=== PATIENT | female | born 1980 | race Caucasian/White ===

== ENCOUNTER 2021-09-03 15:14 | Emergency (ER) | payer OTHER, SELFPAY ==
[2021-09-03 15:25] VITALS: BP 148/64; PULSE 102; RESP 18; TEMP 36.4; O2SAT 98
[2021-09-03 15:36] VITALS: BP 148/64; PULSE 102; RESP 18; TEMP 36.4; O2SAT 98
--- NOTE | 2021-09-03 16:01 | ED.FEMALEGU ---
HPI - Female Genitourinary General Chief complaint: Urogenital-Female Stated complaint: uti symptoms Time Seen by Provider: 09/03/21 15:55 Source: patient, RN notes reviewed and old records reviewed Mode of arrival: ambulatory History of Present Illness HPI Narrative: 40 year [facility] of burning with urination, frequency and urgency with urination since Friday. Patient reports that she has been taking Cranberry pills for her symptoms , denies any use of AZO. Patient states that she has had no fevers, chills or sweats, mild suprapubic abdominal pain denies any back pain. Patient denies any vaginal discharge or itching or any concern for possible STD exposure. Patient reports that at the end of urine stream is very painful. MD elicited complaint: dysuria and UTI Related Data Home Medications Medication Instructions Recorded Confirmed diclofenac sodium 75 mg PO DAILY 09/03/21 09/03/21 Allergies Allergy/AdvReac Type Severity Reaction Status Date / Time No Known Allergies Allergy Unverified 09/03/21 15:36 Review of Systems Review of Systems: CONSTITUTIONAL: Denies fever, chills, or sweats. EYES: Denies visual changes, redness, or discharge. ENT: Denies rhinorrhea, congestion, sore throat, or otalgia. CARDIOVASCULAR: Denies chest pain, palpitations, or edema. RESPIRATORY: Denies cough or dyspnea. GASTROINTESTINAL: mild suprapubic abdominal pain, no nausea, vomiting, or diarrhea. GENITOURINARY: Positive for dysuria or hematuria. SKIN: Denies rash or itching. MUSCULOSKELETAL: Denies back pain, joint pain, or myalgia. NEUROLOGIC: Denies headache, numbness, or weakness. PSYCHIATRIC: Denies anxiety or depression. All systems reviewed & are unremarkable except as noted in HPI and below PMFSH Past Medical History Medical History (Updated 09/03/21 @ 16:07 by Diana Conner NP) UTI (urinary tract infection) Family History Family History Grandparent Family history of malignant neoplasm of breast Family history of colonic diverticulitis Family history of heart disease in male family member before age 55 Diabetes mellitus Social History Social History Smoking status: Never smoker Second hand tobacco smoke exposure: No Alcohol intake: current Comments At time of signature, agree with nursing past medical, surgical, social and family history. There is no relevant family history pertinent to the presenting complaint Exam Narrative: GENERAL: Well-appearing, well-nourished, and in no acute distress. HEAD: Normocephalic, atraumatic. EYES: PERRLA and EOMI. ENT: Nares clear, no rhinorrhea or epistaxis. Mucous membranes moist. NECK: Supple.no lymphadenopathy CHEST: Clear to auscultation. No respiratory distress. SAO2 98% on room air HEART: Regular rate and rhythm. No murmur heard. Normal peripheral pulses. ABDOMEN: Soft, minimal tenderness at lower mid abdomen, nondistended, normal active bowel sounds. EXTREMITIES: Normal range of motion. No edema. SKIN: Warm, dry, no rash. NEURO: No focal deficits. Alert and oriented x3. Course Course Level of Care: Express Care Visit Vital Signs Vital signs: Vital Signs Temperature 36.4 C 09/03/21 15:25 Pulse Rate 102 H 09/03/21 15:25 Respiratory Rate 18 09/03/21 15:25 Blood Pressure 148/64 H 09/03/21 15:25 Pulse Oximetry 98 09/03/21 15:25 Temperature 36.4 C 09/03/21 15:36 Pulse Rate 102 H 09/03/21 15:36 Respiratory Rate 18 09/03/21 15:36 Blood Pressure 148/64 H 09/03/21 15:36 Pulse Oximetry 98 09/03/21 15:36 MDM - Female Genitourinary Differential Diagnosis Differential diagnosis: Likely urinary tract infection, vaginitis, cystitis and other Medical Records Attestation: I reviewed the patient's medical records. Lab Data Attestation: I reviewed the patient's lab results. Lab re
== END 2021-09-03 16:10 | disposition home or self-care (01) ==
PROVIDERS: Emergency Provider Registered Nurse
DX: N39.0 Urinary tract infection, site not specified (principal)
CPT/HCPCS: 81003; 87077; 87086; 87088; 87186; 99213; G0463

== ENCOUNTER 2022-02-12 12:05 | Emergency (ER) | payer OTHER, SELFPAY ==
--- NOTE | 2022-02-12 12:06 | ED.WOUNDLAC ---
HPI - Wound/Laceration General Chief Complaint: Wound/Laceration Stated Complaint: Laceration to Finger Time Seen by Provider: 02/12/22 12:06 Source: patient Mode of arrival: ambulatory Limitations: no limitations History of Present Illness HPI narrative: Ms. Oconnell is a 41-year-old female patient presenting to the clinic today with complaints of a laceration to the right index finger. Patient reports that she was using a mandolin and cut her finger today around 11:00 this morning. She reports that it has been bleeding over the last hour and she is having difficulty getting the bleeding to stop. Tetanus status unk. Related Data Home Medications Medication Instructions Recorded Confirmed No Home Medications 02/12/22 02/12/22 Allergies Allergy/AdvReac Type Severity Reaction Status Date / Time No Known Allergies Allergy Verified 02/12/22 12:16 Review of Systems Review of Systems: Pertinent positives per HPI. Patient denies any fever, chills, rash, headache, visual changes, dizziness, cough, runny nose, sore throat, shortness of breath, chest pain, palpitations, nausea, vomiting, diarrhea, constipation, abdominal pain, or any urinary issues. PMFSH Past Medical History Medical History UTI (urinary tract infection) Family History Family History Grandparent Family history of malignant neoplasm of breast Family history of colonic diverticulitis Family history of heart disease in male family member before age 55 Diabetes mellitus Social History Social History Smoking status: Never smoker Second hand tobacco smoke exposure: No Alcohol intake: current Comments At the time of my signature, I reviewed and agree with the nursing past medical, surgical, social, and family history. There is no relevant family history pertinent to the patient complaint. Exam Narrative: General: Well-developed, well nourished, in no apparent distress Head: Normocephalic, atraumatic. Cardio: Regular rate and rhythm, s1 and s2 normal, no murmur appreciated. Resp: Clear to auscultation bilaterally, no rhonchi, rales, wheezing or rubs. Integumentary: Percy, warm, and dry, skin avulsion to the distal right index finger with bleeding. Skin flap totally removed Course Course Emergency Course: Portions of this record may have been created with voice recognition software. Level of Care: Express Care Visit Vital Signs Vital signs: Vital signs reviewed Procedures Laceration Laceration 1: Date: 02/12/22 Site: hand (Right index finger) Side (If applicable): right Description: clean and other (Skin avulsion the size of a pencil eraser to the distal right index finger) Depth: simple, single layer Local Anesthetic: lidocaine 1% Amount of anesthesia used (mL): 0.5 Pre-repair: wound explored and irrigated ====== Skin Level ====== ====== Subcutaneous Layer ====== ====== Muscle Layer ====== ====== Tendon Layer ====== Dressing: Skin avulsion cleansed with technic care and normal saline. 0.5 mL of lidocaine without epi instilled into wound edges. Bleeding controlled using Surgicel and 2 x 2 and 4 x 4 applied over the wound and secured with tube gauze. Patient tolerated procedure well MDM - Wound/Laceration MDM Narrative Medical decision making narrative: At the time of visit patient is resting comfortably on the exam table. Wound was cleansed using technic care and normal saline. 0.5 mL of lidocaine without epi was injected into the site and Surgicel was applied to the wound to promote clotting. Dressing was applied to the affected area and tetanus shot was given. Supportive measures were discussed with the patient she voiced understanding of discharge instructions an
[2022-02-12 12:08] VITALS: BP 156/65; PULSE 80; RESP 14; TEMP 37.1; O2SAT 100
[2022-02-12] MEDS: TETANUS,DIPHTHERIA,AC PERTUSSIS ADULT (0.5 ML) BOOSTRIX IM (12:23)
== END 2022-02-12 12:40 | disposition home or self-care (01) ==
PROVIDERS: Emergency Provider Nurse Practitioner Family
DX: S61.200A Unspecified open wound of right index finger without damage to nail, initial encounter (principal); W27.4XXA Contact with kitchen utensil, initial encounter; Z23 Encounter for immunization
CPT/HCPCS: 90471; 90715; 99212; G0463

== ENCOUNTER 2023-04-16 14:07 | Outpatient (CLI) | payer OTHER, SELFPAY ==
--- NOTE | ~2023-04-16 | MM_ITS ---
EXAMINATION: MM screening kiana BI w dorie HISTORY: Screening mammogram TECHNIQUE: Craniocaudal and mediolateral oblique 3-D tomosynthesis images were obtained and synthetic 2-D images were generated. CAD analysis was submitted and interpreted. COMPARISON: No prior mammogram is available for comparison at this institution. BREAST PARENCHYMAL COMPOSITION: There are scattered areas of fibroglandular density. FINDINGS: There is no evidence of suspicious mass, calcification, or architectural distortion to sugg est malignancy in either breast. There has been no suspicious interval change. IMPRESSION: 1. No mammographic evidence of malignancy. 2. Recommend routine screening mammography in one year. BI-RADS Category 1: Negative Reviewed, dictated and finalized at location A.
== END 2023-04-16 14:08 | disposition home or self-care (01) ==
LOC: ANHIMG 14:11
DX: Z12.31 Encounter for screening mammogram for malignant neoplasm of breast (principal)
CPT/HCPCS: 77063; 77067

== ENCOUNTER 2023-12-31 14:33 | Emergency (ER) | payer OTHER, SELFPAY ==
[2023-12-31 14:40] VITALS: BP 150/70; PULSE 97; RESP 16; TEMP 36.8; O2SAT 98
--- NOTE | 2023-12-31 14:45 | ED.GENADULT ---
HPI - General Adult General Chief complaint: Urogenital-Female Stated complaint: Urinary Problelm Time Seen by Provider: 12/31/23 14:45 Source: patient, RN notes reviewed and old records reviewed Mode of arrival: ambulatory Limitations: no limitations History of Present Illness HPI narrative: 43-year-old female to Express Care for complaint of urinary frequency, retention, urgency and dysuria that started this morning. Patient endorses history of UTIs. Patient reports using a menstrual cup during her cycle and is noticing some correlation between her cycles and urinary tract infections. Patient states that when she properly sterilize is her menstrual cup in between her cycles that she does not urinary tract infections. Patient reports not sterilizing menstrual cup after cycle last month and states that she is currently at the end her current cycle. patient denies fever, nausea, vomiting, back pain, allergies. patient able to tolerate fluids by mouth. Patient in no acute distress. Related Data Home Medications Medication Instructions Recorded Confirmed fluoxetine 10 mg capsule 10 mg PO DAILY 12/31/23 12/31/23 Allergies Allergy/AdvReac Type Severity Reaction Status Date / Time No Known Allergies Allergy Verified 02/12/22 12:16 Review of Systems Review of Systems: All systems reviewed & are unremarkable except as noted in HPI and below Constitutional: Constitutional: Reports no additional constitutional complaints Eyes: Eyes: Reports no additional eye complaints ENT: Reports system reviewed and no additional complaints, except as documented Cardiovascular: Cardiovascular: Reports no additional cardiovascular complaints, Denies chest pain and Denies dyspnea Respiratory: Respiratory: Reports no additional respiratory complaints, Denies cough and Denies dyspnea Genitourinary: Genitourinary: Reports as per HPI, Reports nocturia, Reports dysuria, Denies flank pain, Reports urinary hesitancy and Reports urinary urgency Musculoskeletal: Musculoskeletal: Reports no additional musculoskeletal complaints Neurologic: Reports system reviewed and no additional complaints, except as documented Psychiatric: Psychiatric: Reports no additional psychiatric complaints PMFSH Past Medical History Medical History UTI (urinary tract infection) Family History Family History Grandparent Family history of malignant neoplasm of breast Family history of colonic diverticulitis Family history of heart disease in male family member before age 55 Diabetes mellitus Social History Social History Smoking status: Never smoker Second hand tobacco smoke exposure: No Alcohol intake: current Comments At the time of my signature, I reviewed and agree with the nursing past medical, surgical, social, and family history. There is no relevant family history pertinent to the patient complaint. Exam Const: General: cooperative, healthy appearing, comfortable, no acute distress, alert and well nourished Nutritional Appearance: well nourished Orientation/consciousness: patient oriented x3 Limitations: no limitations HENMT: Head: normal to inspection Ears: external ears normal Face/Nose/Sinus: Normal external nose present, Normal nares present, normal facial exam, No erythema and No edema Face and sinus: normal facial exam, no erythema and no edema Mouth: Yes Normal oral and palatal mucosa present Eyes: General: appearance normal, both eyes and all related structures Neck: Neck: normal visual inspection, full ROM and no meningeal signs Chest: Chest palpation & inspection: normal inspection of the chest Resp: Effort & Inspection: normal respiratory effort and able to speak in complete sentences Cardio: Jugular venous distension: no JVD Rate: regular
== END 2023-12-31 15:05 | disposition home or self-care (01) ==
PROVIDERS: Emergency Provider Nurse Practitioner Family
DX: N39.0 Urinary tract infection, site not specified (principal)
CPT/HCPCS: 81003; 87086; 87088; 99213; G0463

== ENCOUNTER 2024-03-13 11:02 | Emergency (ER) | payer OTHER, SELFPAY ==
[2024-03-13 11:10] VITALS: BP 135/72; PULSE 69; RESP 20; TEMP 36.8; O2SAT 98
[2024-03-13 11:37] LABS: EDUAAPPEAR Cloudy; EDUABILI Negative (Negative); EDUABLOOD 2+ (Negative); EDUACOLOR1 Yellow; EDUAGLUCOSE Negative (Negative); EDUAKETONE Negative (Negative); EDUALEUKO 1+ (Negative); EDUANITRATE Negative (Negative); EDUAPH 6.5; EDUAPROTEIN 2+ (Negative); EDUAUROBILI 0.2
--- NOTE | 2024-03-13 20:36 | ED.GENADULT ---
HPI - General Adult General Chief complaint: Urogenital-Female Stated complaint: Poss UTI Time Seen by Provider: 03/13/24 11:21 Source: patient, RN notes reviewed and old records reviewed Mode of arrival: ambulatory Limitations: no limitations History of Present Illness HPI narrative: 43-year-old female to Express Care complaint of painful urination, burning with urination, urinary frequency for 3 days. Patient denies fever, abdominal pain. Patient has attempted to treat at home with [id number] medications with intermittent relief. Patient denies abdominal pain, back pain, flank pain, nausea, vomiting, bowel changes, allergies, pertinent medical history. Patient able to tolerate fluids by mouth. Patient resting comfortably in exam room in no acute distress. Related Data Home Medications Medication Instructions Recorded Confirmed fluoxetine 10 mg capsule 10 mg PO DAILY 12/31/23 12/31/23 Allergies Allergy/AdvReac Type Severity Reaction Status Date / Time No Known Allergies Allergy Verified 02/12/22 12:16 Review of Systems Review of Systems: All systems reviewed & are unremarkable except as noted in HPI and below Constitutional: Constitutional: Reports no additional constitutional complaints Eyes: Eyes: Reports no additional eye complaints ENT: Reports system reviewed and no additional complaints, except as documented Cardiovascular: Cardiovascular: Reports no additional cardiovascular complaints, Denies chest pain and Denies dyspnea Respiratory: Respiratory: Reports no additional respiratory complaints, Denies cough and Denies dyspnea Genitourinary: Genitourinary: Reports nocturia and Reports dysuria Musculoskeletal: Musculoskeletal: Reports no additional musculoskeletal complaints Neurologic: Reports system reviewed and no additional complaints, except as documented Psychiatric: Psychiatric: Reports no additional psychiatric complaints [facility] Past Medical History Medical History UTI (urinary tract infection) Family History Family History Grandparent Family history of malignant neoplasm of breast Family history of colonic diverticulitis Family history of heart disease in male family member before age 55 Diabetes mellitus Social History Social History Smoking status: Never smoker Second hand tobacco smoke exposure: No Alcohol intake: current Comments At the time of my signature, I reviewed and agree with the nursing past medical, surgical, social, and family history. There is no relevant family history pertinent to the patient complaint. Exam Const: General: cooperative, healthy appearing, no acute distress, alert, uncomfortable and well nourished Nutritional Appearance: well nourished Orientation/consciousness: patient oriented x3 Limitations: no limitations HENMT: Head: normal to inspection Ears: external ears normal Face/Nose/Sinus: Normal external nose present, Normal nares present, normal facial exam, No erythema and No edema Face and sinus: normal facial exam, no erythema and no edema Mouth: Yes Normal oral and palatal mucosa present Eyes: General: appearance normal, both eyes and all related structures Neck: Neck: normal visual inspection, full ROM and no meningeal signs Chest: Chest palpation & inspection: normal inspection of the chest Resp: Effort & Inspection: normal respiratory effort and able to speak in complete sentences Cardio: Jugular venous distension: no JVD Rate: regular rate Rhythm: regular rhythm : General: Yes no CVA tenderness Back/Spine/Pelvis: Cervical Spine: cervical ROM normal Skin: General skin exam: normal color, no rashes or lesions noted and turgor normal Neuro: General: patient oriented x3, gait normal, moves all extremities and no meningeal signs S
== END 2024-03-13 11:56 | disposition home or self-care (01) ==
PROVIDERS: Emergency Provider Nurse Practitioner Family
DX: N39.0 Urinary tract infection, site not specified (principal); B96.20 Unspecified Escherichia coli [E. coli] as the cause of diseases classified elsewhere
CPT/HCPCS: 81003; 87077; 87086; 87088; 87186; 99213; G0463

== ENCOUNTER 2024-08-27 14:20 | Emergency (ER) | payer OTHER, SELFPAY ==
--- OUTSIDE RECORDS SUMMARY | 2024-08-27 14:23 | XMS_ITS | Data Portability ---
[facility] Organization [facility] [address] [place] [address] Care Team Providers Care Racing Secretary And Handicapper Name Role Phone LISA SLADE Primary Care Provider Assessment Encounter Date Assessment Date Assessment LastModified by Organization Details LastModified Time 03/29/2020 03/29/2020 patient states she will be getting flu shot at work. [email or web address] Not available 03/29/2020 14:11:11 06/23/2023 06/23/2023 patient needs cervical cancer screening on next visit [email or web address] Not available 06/23/2023 11:30:55 Plan of Treatment Reminders Order Date Submit Date Provider Last Modified By Organization Details Last Modified Time Details Appointments None recorded. Lab TSH, ultra-sens itive, serum 2022 023 [facility], [address], [place], [address], 3 07:15:43 CBC w/ auto diff [address] [facility], [address], [place], [address], 3 06:19:32 vitamin D, 25-hydroxy , total, serum 2022 023 [facility], [address], [place], [address], 3 07:15:44 CMP, serum or plasma [address] [facility], [address], [place], [address], 3 06:19:31 lipid panel, serum 2022 023 [facility], [address], [place], [address], 3 06:19:31 HbA1c (hemoglobi n A1c), blood 2022 023 [facility], [address], [place], [address], 3 07:15:44 CMP, serum or plasma 2019 020 [facility], [address], [place], [address], 0 07:07:40 CBC w/ auto diff 2019 020 [facility], [address], [place], [address], 0 07:07:39 lipid panel, serum 2019 020 [facility], [address], [place], [address], 0 07:07:40 vitamin D, 25-hydroxy , total, serum 2019 020 [facility], [address], [place], [address], 0 07:07:41 TSH, ultra-sens itive, serum 2019 020 [facility], [address], [place], [address], 0 07:07:41 Referral dermatolog ist referral [address] Not available 1 05:01:14 Procedures None recorded. Surgeries None recorded. Imaging MAMMO, screening, bilateral 2019 020 [email or web address] [facility] (Mammography) , [address], [place], [address], 0 10:02:56 MAMMO, screening, bilateral 2019 020 [facility], [address], [place], [address], 0 15:30:48 Medication Orders fluoxetine 10 mg capsule 2022 023 [email or web address] [id number], [address] [place], [address], 3 11:21:33 fluoxetine 20 mg capsule 2019 020 [email or web address] [id number], [address] [place], [address], 3 09:10:25 fluoxetine 20 mg capsule 2019 020 etodaroma [id number], [address] [place], [address], 3 09:10:25 Patient TargetsNo targets recorded. Patient Instructions Encounter Date Encounter Id Patient Instructions Last Modified By Organization Details Last Modified Time 12/02/2018 [id number] start regular exercise program (walking) Not available 12/02/2018 11:25:19 [email or web address] arrhythmias on Holter not corresponding with symptoms Not available 12/02/2018 11:24:45 08/04/2019 [id number] mammogram: about this test [email or web address] Not available 08/04/2019 14:56:40 04/29/2023 [id number] medical record request* [email or web address] Not available 05/13/2023 10:56:48 A healthy lifestyle: care instructions [email or web address] Not available 04/29/2023 10:11:11 On the date of this encounter, I saw and examined the patient, personally verifying the chan and critical findings in the resident s note. I reviewed and agree with the resident/fellow s findings and plan. ~MD Lucinda Learning isssues discussed: Risk stratification for breast cancer screening and management [email or web address] Not available 04/29/2023 10:02:02 06/23/2023 [id number] A healthy lifestyle: care instructions [email or web address] Not available 06/23/2023 11:30:56 Attending Physician Addendum I did not personally see or examine the patient with the resident. I was physically present to provide indirect supervision through entire encounter. I have reviewed the documentation and agree with the history, physical findings, work-up, and medical decision making as recorded. Laly Monreal MD [email or web address] Not available 06/23/2023 12:14:26 Reason for Referral Teacher Public Health Referral for L esion of face Referring Physician: Lisa Slade, Family Medicine, Encounter Date: 03/29/2020 Results Created Date Observation Date Name Description Value Unit Range Abnormal Flag Note LastModifiedBy Organization Detail LastModifiedTime 08/21/1908/22/2019 CBC w/ auto diff WBC 7.5 x10e3 /uL 3.4-10 .8 Not Available [facility] ([facility]) [address] [place], [address], 08/23/2019 07:07:39 08/21/1908/22/2019 CBC w/ auto diff RBC 4.70 x10e6 /uL 3.77-5 .28 Not Available [facility] ([facility]) [address] [place], [address], 08/23/2019 07:07:39 08/21/1908/22/2019 CBC w/ auto diff hemoglobin 13.3 g/dL 11.1-1 5.9 Not Available [facility] ([facility]) [address] [place], [address], 08/23/2019 07:07:39 08/21/1908/22/2019 CBC w/ auto diff hematocrit 40.0 % 34.0-4 6.6 Not Available [facility] ([facility]) [address] [place], [address], 08/23/2019 07:07:39 08/21/19 20 08/22/2019 CBC w/ auto diff MCV 85 fL 79-97 Not Available [facility] ([facility]) [address] [facility], [place], [address], 08/23/2019 07:07:39 08/21/19 20 08/22/2019 CBC w/ auto diff MCH 28.3 pg 26.6-3 3.0 Not Available [facility] ([facility]) [address] [place], [address], 08/23/2019 07:07:39 08/21/19 20 08/22/2019 CBC w/ auto diff MCHC 33.3 g/dL 31.5-3 5.7 Not Available [facility] ([facility]) [address] [facility], [place], [address], 08/23/2019 07:07:39 08/21/19 20 08/22/2019 CBC w/ auto diff RDW 13.0 % 11.7-1 5.4 Not Available [facility] ([facility]) [address] [facility], [place], [address], 08/23/2019 07:07:39 08/21/19 20 08/22/2019 CBC w/ auto diff platelets 446 x10e3 /uL 150-45 0 Not Available [facility] ([facility]) [address] [facility], [place], [address], 08/23/2019 07:07:39 08/21/19 20 08/22/2019 CBC w/ auto diff neutrophils 60 % not estab. Not Available [facility] ([facility]) [address] [facility], [place], [address], 08/23/2019 07:07:39 08/21/19 20 08/22/2019 CBC w/ auto diff lymphs 30 % not estab. Not Available [facility] ([facility]) [address] [place], [address], 08/23/2019 07:07:39 08/21/19 20 08/22/2019 CBC w/ auto diff monocytes 8 % not estab. Not Available [facility] ([facility]) [address] [place], [address], 08/23/2019 07:07:39 08/21/19 20 08/22/2019 CBC w/ auto diff eos 1 % not estab. Not Available [facility] ([facility]) [address] [place], [address], 08/23/2019 07:07:39 08/21/19 20 08/22/2019 CBC w/ auto diff basos 1 % not estab. Not Available [facility] ([facility]) [address] [place], [address], 08/23/2019 07:07:39 08/21/19 20 08/22/2019 CBC w/ auto diff immature cells [employer]IC[employer] Not Available [facility] ([facility]) [address] [place], [address], 08/23/2019 07:07:39 08/21/19 20 08/22/2019 CBC w/ auto diff neutrophils (absolute) 4.5 x10e3 /uL 1.4-7. 0 Not Available [facility] ([facility]) [address] [place], [address], 08/23/2019 07:07:39 08/21/19 20 08/22/2019 CBC w/ auto diff lymphs (absolute) 2.2 x10e3 /uL 0.7-3. 1 Not Available [facility] ([facility]) [address] [place], [address], 08/23/2019 07:07:39 08/21/19 20 08/22/2019 CBC w/ auto diff monocytes(ab solute) 0.6 x10e3 /uL 0.1-0. 9 Not Available [facility] ([facility]) [address] [place], [address], 08/23/2019 07:07:39 08/21/19 20 08/22/2019 CBC w/ auto diff eos (absolute) 0.1 x10e3 /uL 0.0-0. 4 Not Available [facility] ([facility]) [address] [place], [address], 08/23/2019 07:07:39 08/21/19 20 08/22/2019 CBC w/ auto diff baso (absolute) 0.1 x10e3 /uL 0.0-0. 2 Not Available [facility] ([facility]) [address] [place], [address], 08/23/2019 07:07:39 08/21/19 20 08/22/2019 CBC w/ auto diff immature granulocytes 0 % not estab. Not Available [facility] ([facility]) [address] [place], [address], 08/23/2019 07:07:39 08/21/19 20 08/22/2019 CBC w/ auto diff immature grans (abs) 0.0 x10e3 /uL 0.0-0. 1 Not Available [facility] ([facility]) [address] [place], [address], 08/23/2019 07:07:39 08/21/19 20 08/22/2019 CBC w/ auto diff NRBC [employer] OFFIC[employer] Not Available [facility] ([facility]) [address] [place], [address], 08/23/2019 07:07:39 08/21/19 20 08/22/2019 CBC w/ auto diff hematology comments: [employer] Not Available [facility] ([facility]) [address] [place], [address], 08/23/2019 07:07:39 08/21/19 20 08/22/2019 CMP, serum or plasm a glucose 87 mg/dL 65-99 Not Available [facility] ([facility]) [address] [place], [address], 08/23/2019 07:07:39 08/21/19 20 08/22/2019 CMP, serum or plasm a BUN 13 mg/dL 6-24 Not Available [facility] ([facility]) [address] [place], [address], 08/23/2019 07:07:39 08/21/19 20 08/22/2019 CMP, serum or plasm a creatinine 0.65 mg/dL 0.57-1 .00 Not Available [facility] ([facility]) [address] [place], [address], 08/23/2019 07:07:39 08/21/19 20 08/22/2019 CMP, serum or plasm a eGFR if nonafricn AM 111 mL/mi n/1.7 3 >59 Not Available [facility] ([facility]) [address] [place], [address], 08/23/2019 07:07:39 08/21/19 20 08/22/2019 CMP, serum or plasm a eGFR if africn AM 128 mL/mi n/1.7 3 >59 Not Available [facility] ([facility]) [address] [place], [address], 08/23/2019 07:07:39 08/21/19 20 08/22/2019 CMP, serum or plasm a BUN/creatini ne ratio 20 9-23 Not Available [facility] ([facility]) [address] [place], [address], 08/23/2019 07:07:39 08/21/19 20 08/22/2019 CMP, serum or plasm a sodium 140 mmol/ L 134-14 4 Not Available [facility] ([facility]) [address] [place], [address], 08/23/2019 07:07:39 08/21/19 20 08/22/2019 CMP, serum or plasm a potassium 5.0 mmol/ L 3.5-5. 2 Not Available [facility] ([facility]) [address] [facility] [place], [address], 08/23/2019 07:07:39 08/21/1908/22/2019 CMP, serum or plasm a chloride 103 mmol/ L 96-106 Not Available [facility] ([facility]) [address] [facility] [place], [address], 08/23/2019 07:07:39 08/21/1908/22/2019 CMP, serum or plasm a carbon dioxide, total 24 mmol/ L 20-29 Not Available [facility] ([facility]) [address] [place], [address], 08/23/2019 07:07:39 08/21/1908/22/2019 CMP, serum or plasm a calcium 10.4 mg/dL 8.7-10 .2 above high normal Not Available [facility] ([facility]) [address] [facility], [place], [address], 08/23/2019 07:07:39 08/21/1908/22/2019 CMP, serum or plasm a protein, total 6.3 g/dL 6.0-8. 5 Not Available [facility] ([facility]) [address] [place], [address], 08/23/2019 07:07:39 08/21/1908/22/2019 CMP, serum or plasm a albumin 4.1 g/dL 3.8-4. 8 Ple ase note refer ence jose l duenas e Not Available [facility] ([facility]) [address] [place], [address], 08/23/2019 07:07:39 08/21/192020 CMP, serum or plasm a globulin, total 2.2 g/dL 1.5-4. 5 Not Available [facility] ([facility]) [address] [place], [address], 08/23/2019 07:07:39 08/21/19 20 08/22/2019 CMP, serum or plasm a A/G ratio 1.9 1.2-2. 2 Not Available [facility] ([facility]) [address] [place], [address], 08/23/2019 07:07:39 08/21/19 20 08/22/2019 CMP, serum or plasm a bilirubin, total 0.4 mg/dL 0.0-1. 2 Not Available [facility] ([facility]) [address] [place], [address], 08/23/2019 07:07:39 08/21/19 20 08/22/2019 CMP, serum or plasm a alkaline phosphatase 81 IU/L 39-117 Not Available [facility] ([facility]) [address] [place], [address], 08/23/2019 07:07:39 08/21/19 20 08/22/2019 CMP, serum or plasm a AST (SGOT) 16 IU/L 0-40 Not Available [facility] ([facility]) [address] [place], [address], 08/23/2019 07:07:39 08/21/19 20 08/22/2019 CMP, serum or plasm a ALT (SGPT) 20 IU/L 0-32 Not Available [facility] ([facility]) [address] [place], [address], 08/23/2019 07:07:39 08/21/19 20 08/22/2019 lipid panel , serum cholesterol, total 171 mg/dL 100-19 9 Not Available [facility] ([facility]) [address] [place], [address], 08/23/2019 07:07:40 08/21/19 20 08/22/2019 lipid panel , serum triglyceride s 100 mg/dL 0-149 Not Available [facility] ([facility]) [address] [facility] [place], [address], 08/23/2019 07:07:40 08/21/19 20 08/22/2019 lipid panel , serum HDL cholesterol 48 mg/dL >39 Not Available [facility] ([facility]) [address] [facility] [place], [address], 08/23/2019 07:07:40 08/21/19 20 08/22/2019 lipid panel , serum VLDL cholesterol junior 20 mg/dL 5-40 Not Available [facility] ([facility]) [address] [place], [address], 08/23/2019 07:07:40 08/21/19 20 08/22/2019 lipid panel , serum LDL cholesterol calc 103 mg/dL 0-99 above high normal Not Available [facility] ([facility]) [address] [facility] [place], [address], 08/23/2019 07:07:40 08/21/19 20 08/22/2019 lipid panel , serum comment: [employer] OFFICIAL Not Available [facility] ([facility]) [address] [place], [address], 08/23/2019 07:07:40 08/21/19 20 08/23/2019 vitam in D, 25-hy droxy , total , serum vitamin D, 25-hydroxy 20.3 NG/mL 30.0-1 00.0 below low normal Vitam in D defic iency has been defin ed by the Insti willie of Medic ine and an Endoc rine Socie ty pract ice guide line as a level of serum 25-OH vitam in D less than 20 ng/mL (1,2) . The Endoc rine Socie ty went on to furth er defin e vitam in D insuf ficie ncy as a level betwe en 21 and 29 ng/mL (2). 1. IOM (Inst itute of Medic ine). 2010. Dieta ry refer bennette nicole es for calci um and DDavion artis [place]: [facility] . 2. Holic k [place], Binkl ey [place], Bisch off-F errar i [place], et al. Evalu ation , treat ment, and preve ntion of vitam in D defic iency : an Endoc rine Socie ty clini junior pract ice guide line. JCEM. 2010; 96(7) :1911 -30. Not Available [facility] ([facility]) [address] [facility], [place], [address], 08/23/2019 07:07:41 08/21/19 20 08/22/2019 TSH, ultra -sens itive , serum TSH 1.700 uIU/m L 0.450- 4.500 Not Available [facility] ([facility]) [address] [facility], [place], [address], 08/23/2019 07:07:41 04/29/20 23 04/29/2023 LIPID PANEL cholesterol, total 167 mg/dL 100-19 9 Not Available [facility] Department [address] [place], [address], 04/30/2023 06:19:30 04/29/20 23 04/29/2023 LIPID PANEL triglyceride s 121 mg/dL 0-149 Not Available [facility] Department [address] [place], [address], 04/30/2023 06:19:30 04/29/20 23 04/29/2023 LIPID PANEL HDL cholesterol 45 mg/dL 40-999 Not Available [facility] Department [address] [place], [address], 04/30/2023 06:19:30 04/29/20 23 04/29/2023 LIPID PANEL VLDL cholesterol junior 24 mg/dL 5-40 Not Available [facility] Department [address] [place], [address], 04/30/2023 06:19:30 04/29/20 23 04/29/2023 LIPID PANEL LDL chol calc (nih) 115 mg/dL 0-99 above high normal Not Available [facility] Department [address] [place] [address], [address], 04/30/2023 06:19:30 04/29/20 23 04/29/2023 COMP. METAB OLIC PANEL (14) glucose 87 mg/dL 70-99 Not Available [facility] Department [address] [place] [address], [address], 04/30/2023 06:19:31 04/29/20 23 04/29/2023 COMP. METAB OLIC PANEL (14) BUN 10 mg/dL 6-24 Not Available [facility] Department [address] [place] [address], [address], 04/30/2023 06:19:31 04/29/20 23 04/29/2023 COMP. METAB OLIC PANEL (14) creatinine 0.58 mg/dL 0.76-1 .27 below low normal Not Available [facility] Department [address] [place] [address], [address], 04/30/2023 06:19:31 04/29/20 23 04/29/2023 COMP. METAB OLIC PANEL (14) eGFR 114 >=60 Units for eGFR value s are mL/mi n/1.7 3 The eGFR Calcu latio n has not been valid ated for patie nts under the age of 18. If test resul ts are displ ayed for a patie nt under the age of 18, disre braxton that value . Not Available [facility] Department [address] [place] [address], [address], 04/30/2023 06:19:31 04/29/20 23 04/29/2023 COMP. METAB OLIC PANEL (14) BUN/creatini ne ratio 17 9-23 Not Available [facility] Department [address] [place] [address], [address], 04/30/2023 06:19:31 04/29/20 23 04/29/2023 COMP. METAB OLIC PANEL (14) sodium 142 mmol/ L 134-14 4 Not Available [facility] Department [address] [place] [address], [address], 04/30/2023 06:19:31 04/29/20 23 04/29/2023 COMP. METAB OLIC PANEL (14) potassium 4.5 mmol/ L 3.5-5. 2 Not Available [facility] Department [address] [place] [address], [address], 04/30/2023 06:19:31 04/29/2004/29/2023 COMP. METAB OLIC PANEL (14) chloride 105 mmol/ L 96-106 Not Available [facility] Department [address] [place] [address], [address], 04/30/2023 06:19:31 04/29/20 23 04/29/2023 COMP. METAB OLIC PANEL (14) carbon dioxide, total 26 mmol/ L 20-29 Not Available [facility] Department [address] [place] [address], [address], 04/30/2023 06:19:31 04/29/20 23 04/29/2023 COMP. METAB OLIC PANEL (14) calcium 10.2 mg/dL 8.7-10 .2 Not Available [facility] Department [address] [place] [address], [address], 04/30/2023 06:19:31 04/29/2004/29/2023 COMP. METAB OLIC PANEL (14) protein, total 6.4 g/dL 6.0-8. 5 Not Available [facility] Department [address] [place] [address], [address], 04/30/2023 06:19:31 04/29/20 23 04/29/2023 COMP. METAB OLIC PANEL (14) albumin 4.0 g/dL 3.9-4. 9 Not Available [facility] Department [address] [place], [address], 04/30/2023 06:19:31 04/29/20 23 04/29/2023 COMP. METAB OLIC PANEL (14) globulin, total 2.4 g/dL 1.5-4. 5 Not Available [facility] Department [address] [place], [address], 04/30/2023 06:19:31 04/29/20 23 04/29/2023 COMP. METAB OLIC PANEL (14) A/G ratio 2.0 1.2-2. 2 Not Available [facility] Department [address] [place], [address], 04/30/2023 06:19:31 04/29/20 23 04/29/2023 COMP. METAB OLIC PANEL (14) bilirubin, total 0.2 mg/dL 0.0-1. 2 Not Available [facility] Department [address] [place], [address], 04/30/2023 06:19:31 04/29/20 23 04/29/2023 COMP. METAB OLIC PANEL (14) alkaline phosphatase 95 IU/L 44-121 Not Available [facility] Department [address] [place] [address], [address], 04/30/2023 06:19:31 04/29/20 23 04/29/2023 COMP. METAB OLIC PANEL (14) AST (SGOT) 21 IU/L 0-40 Not Available [facility] Department [address] [place], [address], 04/30/2023 06:19:31 04/29/20 23 04/29/2023 COMP. METAB OLIC PANEL (14) ALT (SGPT) 22 IU/L 0-32 Not Available [facility] Department [address] [place] [address], [address], 04/30/2023 06:19:31 04/29/2004/29/2023 CBC WITH DIFFE RENTI AL/PL ATELE T WBC 7.7 x10e3 /uL 3.4-10 .8 Not Available [facility] Department [address] [place], [address], 04/30/2023 06:19:32 04/29/2004/29/2023 CBC WITH DIFFE RENTI AL/PL ATELE T RBC 4.73 x10e6 /uL 3.77-5 .28 Not Available [facility] Department [address] [place], [address], 04/30/2023 06:19:32 04/29/2004/29/2023 CBC WITH DIFFE RENTI AL/PL ATELE T hemoglobin 12.2 g/dL 11.1-1 5.9 Not Available [facility] Department [address] [place], [address], 04/30/2023 06:19:32 04/29/2004/29/2023 CBC WITH DIFFE RENTI AL/PL ATELE T hematocrit 39.4 % 34.0-4 6.6 Not Available [facility] Department [address] [place], [address], 04/30/2023 06:19:32 04/29/2004/29/2023 CBC WITH DIFFE RENTI AL/PL ATELE T MCV 83 fL 79-97 Not Available [facility] Department [address] [place], [address], 04/30/2023 06:19:32 04/29/2004/29/2023 CBC WITH DIFFE RENTI AL/PL ATELE T MCH 25.8 pg 26.6-3 3.0 below low normal Not Available [facility] Department [address] [place], [address], 04/30/2023 06:19:32 04/29/2004/29/2023 CBC WITH DIFFE RENTI AL/PL ATELE T MCHC 31.0 g/dL 31.5-3 5.7 below low normal Not Available [facility] Department [address] [place], [address], 04/30/2023 06:19:32 04/29/2004/29/2023 CBC WITH DIFFE RENTI AL/PL ATELE T RDW 14.1 % 11.5-1 4.5 Not Available [facility] Department [address] [place], [address], 04/30/2023 06:19:32 04/29/2004/29/2023 CBC WITH DIFFE RENTI AL/PL ATELE T platelets 382 x10e3 /uL 150-45 0 Not Available [facility] Department [address] [place], [address], 04/30/2023 06:19:32 04/29/2004/29/2023 CBC WITH DIFFE RENTI AL/PL ATELE T neutrophils 65 % notest b. Not Available [facility] Department [address] [place], [address], 04/30/2023 06:19:32 04/29/2004/29/2023 CBC WITH DIFFE RENTI AL/PL ATELE T lymphs 26 % notest b. Not Available [facility] Department [address] [place], [address], 04/30/2023 06:19:32 04/29/2004/29/2023 CBC WITH DIFFE RENTI AL/PL ATELE T monocytes 7 % notest b. Not Available [facility] Department [address] [place], [address], 04/30/2023 06:19:32 04/29/2004/29/2023 CBC WITH DIFFE RENTI AL/PL ATELE T eos 1 % notest b. Not Available [facility] Department [address] [place], [address], 04/30/2023 06:19:32 04/29/2004/29/2023 CBC WITH DIFFE RENTI AL/PL ATELE T basos 1 % notest b. Not Available [facility] Department [address] [place] [address], [address], 04/30/2023 06:19:32 04/29/2004/29/2023 CBC WITH DIFFE RENTI AL/PL ATELE T neutrophils (absolute) 5.0 x10e3 /uL 1.4-7. 0 Not Available [facility] Department [address] [place] [address], [address], 04/30/2023 06:19:32 04/29/2004/29/2023 CBC WITH DIFFE RENTI AL/PL ATELE T lymphs (absolute) 2.0 x10e3 /uL 0.7-3. 1 Not Available [facility] Department [address] [place] [address], [address], 04/30/2023 06:19:32 04/29/2004/29/2023 CBC WITH DIFFE RENTI AL/PL ATELE T monocytes(ab solute) 0.5 x10e3 /uL 0.1-0. 9 Not Available [facility] Department [address] [place] [address], [address], 04/30/2023 06:19:32 04/29/2004/29/2023 CBC WITH DIFFE RENTI AL/PL ATELE T eos (absolute) 0.1 x10e3 /uL 0.0-0. 4 Not Available [facility] Department [address] [place] [address], [address], 04/30/2023 06:19:32 04/29/2004/29/2023 CBC WITH DIFFE RENTI AL/PL ATELE T baso (absolute) 0.1 x10e3 /uL 0.0-0. 2 Not Available [facility] Department [address] [place], [address], 04/30/2023 06:19:32 04/29/2004/29/2023 CBC WITH DIFFE RENTI AL/PL ATELE T immature granulocytes 0.3 % notest b. Not Available [facility] Department [address] [place], [address], 04/30/2023 06:19:32 04/29/2004/29/2023 CBC WITH DIFFE RENTI AL/PL ATELE T immature grans (abs) 0.0 x10e3 /uL 0.0-0. 1 Not Available [facility] Department [address] [place], [address], 04/30/2023 06:19:32 04/29/20 23 04/29/2023 CBC WITH DIFFE RENTI AL/PL ATELE T NRBC 0 % 0-0 Not Available [facility] Department [address] [place], [address], 04/30/2023 06:19:32 04/29/2004/30/2023 TSH RFX ON ABNOR MAL TO FREE T4 TSH 2.570 uIU/m L 0.450- 4.500 Not Available [facility] [facility]) [address] [facility], [place], [address], 04/30/2023 07:15:43 04/29/2004/30/2023 HEMOG LOBIN A1C hemoglobin A1C 5.6 % 4.8-5. 6 Predi abete s: 5.7 - 6.4 Diabe belem: >6.4 Glyce chester contr ol for adult s with diabe belem: <7.0 Not Available [facility] ([facility]) [address] [facility], [place], [address], 04/30/2023 07:15:44 04/29/20 23 04/30/2023 VITAM IN D, 25-HY DROXY vitamin D, 25-hydroxy 19.4 NG/mL 30.0-1 00.0 below low normal Vitam in D defic iency has been defin ed by the Insti tute of Medic ine and an Endoc rine Socie ty pract ice guide line as a level of serum 25-OH vitam in D less than 20 ng/mL (1,2) . The Endoc rine Socie ty went on to [facility] er defin e vitam in D insuf ficie ncy as a level betwe en 21 and 29 ng/mL (2). 1. IOM (Inst itute of Medic ine). 2009. Dieta ry refer ence intak es for calci um and D. Abdulkadir artis [place]: The Natio nal [facility] Press . 2. Shweta benntet MF, [place], Jcarlos off-F rossy i [place], et al. Evalu ation , treat ment, and preve ntion of vitam in D defic iency : an Endoc rine Socie ty clini junior pract ice guide line. JCEM. 2010; 96(7) :1911 -30. Not Available [facility] ([facility]) [address] [facility], [place], [address], 04/30/2023 07:15:44 11/14/19 19 11/13/2018 US, echoc ardio gram, trans thora cic, compl ete, w/ color flow No observ ation record ed. [facility] ([facility]) [address] [facility] [address], [place], [address], 12/01/2018 12:57:44 11/18/19 19 11/13/2018 thaddeus r monit or No observ ation record ed. [facility]) [address] [facility] [address], [place], [address], 12/01/2018 12:57:44 Result Notes None recorded. Problems Name Problem SNOMED Code Status Onset Date Resolution Date Notes Provider Name and Address Organization Details Recorded Time Generalized anxiety disorder 23342833 Active 2022 MARCO ALCAZAR MD Attn: Bala g,[address] [facility], [place], [address], [place] [facility] 3 17:18:23 Morbid obesity 227823293 Active 2022 MARCO ALCAZAR MD Attn: Bala mir,[address], [place], [address], [place] [facility] 3 17:18:26 Vitamin D deficiency 15109573 Active 2022 MARCO ALCAZAR MD Attn: Bala mir,[address] [facility], [place], [address], [place] [facility] 3 15:31:10 Hyperlipidemia 89025688 Active 2022 MARCO ALCAZAR MD Attn: Bala mir,[address] [facility], [place], [address], [place] [facility] 3 15:33:03 Problem Notes None recorded. Procedures Surgical History None recorded. Imaging Results Imaging Date Name Status LastModified by Organiz ation Details LastModified Time 11/13/2018 US, echocardiogr am, transthoraci c, complete, w/ color flow completed [facility] ([facility]) [address] [place] [address] [place] [address], [address], 12/01/2018 12:57:44 11/13/2018 holter monitor completed [facility]) [address] [place] [address], [address], 12/01/2018 12:57:44 Procedure Notes None recorded. Medical Equipment None Reported. Allergies No known drug allergies Medications Name Sig Start Date Stop Date Status Note LastModified by Organization Details LastModified Time triamcinolo ne acetonide 0.5 % topical cream 12/02 completed Not Available Not Available Not Available sulfamethox azole 800 mg-trimetho prim 160 mg tablet TAKE 1 TABLET BY MOUTH TWICE DAILY 06/23 completed Not Available Not Available Not Available fluoxetine 10 mg capsule TAKE 1 CAPSULE BY MOUTH EVERY DAY PATIEN T NEEDS APPOINTME NT FOR FURTHER REFILLS * active Not Available Not Available No t Available Vitamin D2 1,250 mcg (50,000 unit) capsule Take 1 capsule(s ) every week by oral route. 04/29 completed Not Available Not Available Not Available fluoxetine 20 mg capsule TAKE 1 CAPSULE BY MOUTH EVERY DAY 04/29 completed Not Available Not Available Not Available amoxicillin 875 mg-potassiu m clavulanate 125 mg tablet 03/29 completed Not Available Not Available Not Available nitrofurant oin monohydrate /macrocryst als 100 mg capsule TAKE 1 CAPSULE BY MOUTH TWICE A DAY FOR 7 DAYS 04/29 completed Not Available Not Available Not Available cholecalcif stefano (vitamin D3) 50 mcg (2,000 unit) capsule TAKE 1 CAPSULE BY ORAL ROUTE FOR 30 DAYS. 2023 active Not Available Not Available Not Avai lable Vitals Date Recorded Body height Body mass index (BMI) Body weight Heart rate Heart rate Respiratory rate Oxygen saturation Oxygen saturation in Arterial blood by Pulse oximetry Body temperature Systolic blood pressure Diastolic blood pressure Provider Name and Address Organization Details Last Updated DateTime 9 167.64 cm 37.1 kg/m2 676283. 81 g 72 /min 72 /min 18 /min 97 % 97 % 98.9 [degF] 139 mm[Hg] 88 mm[Hg] Nirali PottsNUBIA [facility] 9 11:13:49 Date Recorded Body height Body mass index (BMI) Body weight Oxygen saturation Oxygen saturation in Arterial blood by Pulse oximetry Heart rate Systolic blood pressure Diastolic blood pressure Provider Name and Address Organization Details Last Updated DateTime 0 167.64 cm 36.2 kg/m2 570934. 79 g 98 % 98 % 78 /min 108 mm[Hg] 88 mm[Hg] Simran Lloyd [facility] 0 14:16:21 Date Recorded Body height Body mass index (BMI) Body weight Body temperature Respiratory rate Oxygen saturation Oxygen saturation in Arterial blood by Pulse oximetry Heart rate Systolic blood pressure Diastolic blood pressure Provider Name and Address Organization Details Last Updated DateTime 3 167.64 cm 42 kg/m2 611719. 77 g 98.5 [degF] 12 /min 99 % 99 % 79 /min 130 mm[Hg] 84 mm[Hg] Irasema Gabriel MA [place] [facility] 3 09:15:09 Date Recorded Body height Body mass index (BMI) Body weight Body temperature Heart rate Respiratory rate Systolic blood pressure Diastolic blood pressure Provider Name and Address Organization Details Last Updated DateTime 3 167.64 cm 40.9 kg/m2 668992. 97 g 97 [degF] 65 /min 14 /min 135 mm[Hg] 77 mm[Hg] Moraima Garcia MA [place] [facility] 3 09:58:37 Social History Question Answer Notes LastModified by Organizat ion Details LastModified Time Tobacco Smoking Status Never Smoker Valorie Stephenson MA null, [place] [facility] 10/26/2018 14:43:07 What Is Your Level Of Alcohol Consumption? Occasional 1 Glass Of Wine A Wk Information not available 04/29/2023 What Is Your Level Of Caffeine Consumption? Moderate Information not available 03/29/2020 How Much Tobacco Do You Chew? None Information not available 03/29/2020 In The 14 Days Before Symptom Onset, Have You Had Close Contact With A Laboratory-confir med COVID-19 While That Case Was Ill? No Information not available 06/23/2023 In The 14 Days Before Symptom Onset, Have You Had Close Contact With A Person Who Is Under Investigation For COVID-19 While That Person Was Ill? No Information not available 06/23/2023 Have You Been To An Area Known To Be High Risk For COVID-19? No Information not available 03/29/2020 Which Illicit Or Recreational Drugs Have You Used? None Information not available 03/29/2020 Do You Or Have You Ever Used E-cigarettes Or Vape? Never Used Electronic Cigarettes Information not available 08/04/2019 What Was The Date Of Your Most Recent Tobacco Screening? 06/23/2023 Information not available 06/23/2023 Do You Or Have You Ever Used Smokeless Tobacco? Never Used Smokeless Tobacco Information not available 08/04/2019 How Much Tobacco Do You Smoke? No Information not available 08/04/2019 Do You Use Any Illicit Or Recreational Drugs? No Information not available 04/29/2023 On What Date Was Tobacco Cessation Counseling Provided? 06/23/2023 Information not available 06/23/2023 How Many Years Have You Smoked Tobacco? 0 Information not available 08/04/2019 Sex: Female Functional Status None recorded. Mental Status None recorded. Family History Relationship Description Onset Age of this Age Resolved Age Notes LastModified by Organization Details LastModified Time Maternal Grandfather Depressive disorder vlavenderma Not available 10/06 14:44:19 Maternal Grandmother Diabetes mellitus vlavenderma Not available 10/06 14:44:36 Maternal Grandmother Malignant tumor of breast vlavenderma Not available 10/06 14:45:42 Maternal Grandmother Myocardial infarction vlavenderma Not available 14:46:24 Paternal Grandmother Diabetes mellitus vlavenderma Not available 10/06 14:44:36 Paternal Grandmother Heart disease vlavenderma Not available 10/06 14:44:50 Paternal Grandmother Hypercholest erolemia vlavenderma Not available 10/06 14:45:12 Paternal Grandmother Malignant tumor of breast vlavenderma Not available 10/06 14:45:42 Father Hypercholest erolemia vlavenderma Not available 10/06 14:45:12 Father Hypertensive disorder vlavenderma Not available 10/06 14:45:20 Mother Migraine vlavenderma Not availa ble 10/26/2018 14:45:59 Medical History Condition Response Coronary Artery Disease N Other N High Blood Pressure N Atrial Fibrillation N Thyroid Problems N Kidney or Bladder Problems N GI Problems N Depression N COPD N Blood Clots N Skin Problems N Eating Disorder N Anemia N Heart Attack (CA) N Anxiety Disorder Y Diabetes N Muscle, Joint, or Bone Problems N Seizures/Epilepsy N Acid Reflux (GERD) N Cancer N Stroke N Asthma Y Allergies Y ADHD N Substance Abuse N High Cholesterol N Hepatitis N Liver Disease N Schizophrenia N Headaches Y Heart Failure N Osteoporosis N Gynecological History Statement/Question Response Flow Moderate Date of LMP 03/27/2020 Frequency of Cycle (Q days) 28 Menses Monthly Y Duration of Flow (days) 5 Age at Menarche 11 Current Control Method None Age at First Child LMP Definite Obstetrics History GPAL:G 0 P 0 0 0 0 Type Value Multiple Births 0 Full Term 0 Induced 0 Spontaneous 0 Premature 0 Living 0 Ectopics 0 Total 0 Past Encounters Encounter ID Performer Location Encounter Start Date Encounter Closed Date Diagnosis/Indication Diagnosis SNOMED-CT Code Diagnosis ICD10 Code Diagnosis Note [id number] Lisa Slade MD [facility] [address] [place] [address] 10/26/2018 14:19:43 10/26/2018 16:33:14 Intermittent palpitations 976951878 R00.2 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 Adult [facility] th examination 164699369 Z00.00 [id number] Lisa Slade MD [facility] [address] [place] [address] 03/29/2020 13:59:37 03/30/2020 10:02:56 Screening mammography 55037962 Z12.31 both grand mothers and one aunt with breast cancer. Moderate r ecurrent major depression 45664709 F33.1 Lesion of face 679317701 L98.9 [id number] MD Shekhar Cade 14 IM [address] [facility] [place] [address] 04/29/2023 08:43:45 05/08/2023 12:01:36 Morbid obesity 780153201 E66.01 Patient educated on healthy eating habits and exercise at least 30 mins per day. A diet comprised of four to five servings of fruit, four to five servings of vegetables , and two to three servings of low-fat dairy per day, with <25 percent of daily caloric intake from fat. Generalize d anxiety disorder 86086330 F41.1 - Previously managed on fluoxetine and did well on the medication .- start fluoxetine 10 mg daily- follow-up in 2 months Screening for malignant neoplasm of breast 049519366 Z12.39 Kandy Model for Breast cancer risk model puts patient at 0.9% risk of breast cancer in the next 5 years. This informatio n was discussed with patient who agreed to wait until next year to repeat mammogram. [id number] MD Shekhar Mcgovern [address] [facility] [address] [place] [address] [place], [place] [address], [place] [address] 06/23/2023 09:45:41 06/25/2023 15:21:47 Generalized anxiety disorder 24328958 F41.1 - Doing well with medication and would like to maintain current dosage.- plan to continue fluoxetine 10 mg daily.- she is aware that she can reach out, if current dose is no longer effective- follow-up in 6 months Obesity 586643574 E66.9 Patient educated on healthy eating habits and exercise at least 30 mins per day. A diet comprised of four to five servings of fruit, four to five servings of vegetables , and two to three servings of low-fat dairy per day, with <25 percent of daily caloric intake from fat. Health Concerns Section Related Observation LastModified by Organization Detai ls LastModified Time None Recorded Concern Status LastModified by Organization Details LastModified Time None Recorded Advance Directives Directive None Recorded Payers Encounter Date Sequence Insurance Name Policy Number Policy Dhaliwal Covered Member ID Dahliwal Member ID Guarantor Name 12/02/2018 1 [employer] - CHOICE (POS II) [id number] Katelynn Watkins Ulices [id number] Katelynn Andersen Anish 08/04/2019 1 [employer] - CHOICE (POS II) [id number] Katelynn Watkins Anish [id number] Katelynn Andersen Sabine 03/29/2020 1 [employer] - CHOICE (POS II) [id number] Katelynn Watkins Anish [id number] Katelynn Andersen Sabine 04/29/2023 1 [employer] - CHOICE (POS II) [id number] Katelynn Watkins Anish [id number] Katelynn Andersen Anish 06/23/2023 1 [employer] - CHOICE (POS II) [id number] Katelynn Oconnell [id number] Katelynn Oconnell Notes Date Note Type Note Provider Name and Address Organization Details Recorded Time 12/02/2018 text/html palpitations off and on, somewhat better with fluoxitine holter shows no correlation between symptoms and arrhythmias noted Lupillo Lai MD [address] [place], [address], [facility] 12/02/2018 11:29:15 08/04/2019 text/html Anxiety/Depressi onRe ported bypatient.Quality:sy mptoms improved Severity:denies suicidal ideations; does not interfere with activities of daily living Duration:stablizing Onset/Timing:gradual Context:family problems;trouble at work Modifying Factors:counselling; medications as directed Associated Symptoms:denies homicidal ideations; mood good; no crying spells; sleeping wellNotes:doing well on current dose of fluoxetine. Needs to discuss about possible renewal of fluoxetine. Lisa Slade MD Attn: Accounting,[address] [place], [address], [facility] 08/07/2019 17:53:29 03/29/2020 text/html Anxiety/Depressi onRe ported bypatient.Quality:sy mptoms improved Severity:denies suicidal ideations; does not interfere with activities of daily living Duration:stablizing Onset/Timing:gradual Context:family problems;trouble at work Modifying Factors:counselling; medications as directed Associated Symptoms:denies homicidal ideations; mood good; no crying spells; sleeping wellNotes:better with fluoxetine. Lisa Slade MD Attn: Accounting,[address] [place], [address], [facility] 04/02/2020 21:50:53 04/29/2023 text/html Katelynn is a 42 year old female with PMH of anxiety who presents to the clinic for anxiety management. Generalized anxiety - Previously managed on fluoxetine 10 mg for anxiety but stopped medication due to lack of follow up with PCP. She also reported at the time she stopped taking the medication, her anxiety were under control. She is interested in getting back on it now due to stressful work environment. 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 Mammogram screening - Pt reports a recent mammogram about few weeks ago. patient will have results faxed to the clinic. patient was told about fibroglandular dense tissue noted on mammogram and was told to follow-up with routine yearly mammogram. patient asked about if she needs a diagnostic mammogram due to the fibroglandular dense tissue. Cervical cancer screening - Last Pap smear about 15 years ago and patient reports normal results. She report severe anxiety from getting her pap done that she never went back to have it done again. The thought of getting a pap makes her emotional. She is not interested at this time to get one done. She denies abnormal bleeds, or breakthrough bleeds . LMP 04/24 and regular Morbid obesity - No history of DM Type 2 and unsure of A1C results. patient acknowledges that she needs to work on losing weight and would try lifestyle modifications. Reports no c/o fever, chills, headaches, changes in vision, shortness of breath, cough, nausea, vomiting, constipation, diarrhea, abdominal pain or leg swelling. Rosy Cannon MD Attn: Accounting,[address] [place], [address], [facility] 05/05/2023 11:21:51 06/23/2023 text/html Katelynn is a 42 year old female with PMH of anxiety who presents to the clinic for generalized anxiety follow up. Generalized anxiety - Patient was started on fluoxetine on 04/29. She reports doing well with the fluoxetine 10 mg, and being compliant with her medication. No side effects noted from the medication. Reports no c/o fever, chills, headaches, changes in vision, shortness of breath, cough, nausea, vomiting, constipation, diarrhea, abdominal pain or leg swelling. Laly Monreal MD Attn: Accounting,[address] [place], [address], [facility] 06/23/2023 12:14:49 OBGyn Episode No OBEpisode recorded.
[2024-08-27 14:25] VITALS: BP 136/79; PULSE 102; RESP 16; TEMP 36.2; O2SAT 99
--- NOTE | 2024-08-27 14:25 | ED_ITS ---
HPI - Female Genitourinary General Chief complaint: Urogenital-Female Stated complaint: Urinary Problem Time Seen by Provider: 08/27/24 14:20 Source: patient Mode of arrival: ambulatory Limitations: no limitations History of Present Illness HPI Narrative: Patient is a 43-year-old female who presents with burning, urgency and frequency. Patient also has cloudy urine. Symptoms started yesterday. Patient has history of UTI. Denies any fever, chills, nausea, vomiting, diarrhea. MD elicited complaint: dysuria Related Data Home Medications ?Medication ?Instructions ?Recorded ?Confirmed ?Last Taken ?Type fluoxetine 10 mg capsule 10 mg PO DAILY 12/31/23 12/31/23 Unknown History Allergies Allergy/AdvReac Type Severity Reaction Status Date / Time No Known Allergies Allergy Verified 08/27/24 14:36 Review of Systems Review of Systems: All systems reviewed & are unremarkable except as noted in HPI and below Constitutional: Constitutional: Denies chills, Denies fever(s), Denies headache(s), Denies malaise and Denies weakness Eyes: Eyes: Denies change in vision, Denies eye discharge and Denies irritatio n ENT: Denies otalgia, Denies headache(s), Denies nasal congestion, Denies nasal discharge, Denies sinus pain and Denies sore throat Cardiovascular: Cardiovascular: Denies chest pain, Denies edema, Denies palpitations and Denies dyspnea Respiratory: Respiratory: Denies cough and Denies dyspnea Gastrointestinal: Gastrointestinal: Denies abdominal pain, Denies diarrhea, Denies nausea and Denies vomiting Genitourinary: Genitourinary: Denies hematuria, Reports nocturia, Reports dysuria, Denies flank pain and Reports urinary urgency Musculoskeletal: Musculoskeletal: Denies back pain and Denies numbness Integumentary/Breasts: Skin/Breast: Denies pruritus and Denies rash Neurologic: Denies headache(s), Denies numbness and Denies weakness Psychiatric: Psychiatric: Reports no additional psychiatric complaints Endocrine: Endocrine: Denies palpitations PMFSH Past Medical History Medical History UTI (urinary tract infection) Family History Family History Grandparent Family history of malignant neoplasm of breast Family history of colonic diverticulitis Family history of heart disease in male family member before age 55 Diabetes mellitus Social History Social History Smoking status: Never smoker Second hand tobacco smoke exposure: No Alcohol intake: current Comments At time of signature, agree with nursing past medical, surgical, social and family history. There is no relevant family history pertinent to the presenting complaint. Exam Const: General: cooperative, healthy appearing, comfortable, no acute distress and well nourished Nutritional Appearance: well nourished Orientation/consciousness: patient oriented x3 HENMT: Head: normocephalic and atraumatic Ears: external ears normal Fa ce/Nose/Sinus: Normal external nose present, Normal nares present and normal facial exam Face and sinus: normal facial exam Eyes: General: appearance normal, both eyes and all related structures Pupils: Equal, round and reactive pupils present EOM: EOMs intact bilaterally Neck: Neck: normal visual inspection, full ROM and supple Chest: Chest palpation & inspection: normal inspection of the chest Resp: Effort & Inspection: normal respiratory effort and able to speak in complete sentences Cardio: Rate: tachycardic Rhythm: regular rhythm GI: Inspection: normal to inspection GI Palp: No abdominal tenderness and Yes Soft to palpation : General: Yes no CVA tenderness Back/Spine/Pelvis: Back: no CVA tenderness Skin: General skin exam: normal color and no rashes or lesions noted Neuro: General: patient oriented x3 and moves all extremities Cranial nerves: Yes Equal, round and reactive pupils present Extrem: General: normal to inspection and full ROM Psych: Appearance: grossly normal and well kempt Course Course Emergency Course: Patient is aware of diagnosis, understands and agrees to treatment plan. Anticipatory guidance given. Patient agrees to follow-up as directed and is aware of reasons to seek care at the emergency department. Portions of this record may have been created with voice recognition software Level of Care: Express Care Visit Vital Signs Vital signs: Vital Signs Temperature 36.2 C L 08/27/24 14:25 Pulse Rate 102 H 08/27/24 14:25 Respiratory Rate 16 08/27/24 14:25 Blood Pressure 136/79 08/27/24 14:25 Pulse Oximetry 99 08/27/24 14:25 Oxygen Delivery Room Air 08/27/24 14:25 Temperature 36.2 C L 08/27/24 14:25 Pulse Rate 102 H 08/27/24 14:25 Respiratory Rate 16 08/27/24 14:25 Blood Pressure 136/79 08/27/24 14:25 Pulse Oximetry 99 08/27/24 14:25 Oxygen Delivery Room Air 08/27/24 14:25 Reviewed MDM - Female Genitourinary MDM Narrative Medical decision making narrative: Exam findings and UA show probable UTI; patient is non-toxic appearing and is in no distress. No CMT, adnexal tenderness, or evidence of pelvic etiology. Pt well hydrated appearing, in no respiratory distress, hemodynamically stable. Recommend supportive care. The patient is stable at time of discharge the clinical impression was discussed and the patient was given the opportunity to ask questions, which were addressed as completely as possible given the i nformation available at present. Anticipatory guidance and return to care precautions were discussed and the importance of primary care follow-up was stressed and encouraged. The patient voiced understanding of the plan, indications to return, and the need for follow-up. Patient is appropriate for outpatient treatment and follow-up. Differential Diagnosis Differential diagnosis: Likely urinary tract infection, bacterial vaginosis, trichomoniasis, cervicitis, vaginitis and cystitis Medical Records Attestation: I reviewed the patient's medical records. Lab Data Attestation: I reviewed the patient's lab results. Labs: Lab Results 08/27/24 Range/Units 14:34 POC Urine Color Yellow POC Urine Clarity Cloudy POC Urine pH 5.5 POC Ur Specif [place] 1.020 POC Urine Protein 1+ (Negative) POC Ur Glucose (UA) Negative (Negative) POC Urine Ketones Negative (Negative) POC Urine Blood 1+ (Negative) POC Urine Nitrite Positive (Negative) POC Urine Bilirubin Negative (Negative) POC Urine Urobilinogen 0.2 POC U Leukocyte Esteras 2+ (Negative) Discharge Plan Discharge Clinical Impression: Urinary tract infection Qualifiers: Urinary tract infection type: acute cystitis Hematuria presence: with hematuria Qualified Code(s): N30.01 - Acute cystitis with hematuria Patient Disposition: Home, Self-Care Condition: Stable Instructions: Urinary Tract Infection in Women (ED) Additional Instructions: We will send a urine culture to the lab, based on your symptoms and urine dip we will start treatment today. If culture comes back and bacteria is not susceptible to antibiotic, your prescription may change. Your symptoms should improve within a day of starting antibiotics, but you should finish all the antibiotic pills you get. Otherwise your infection might come back Continue with increased water intake. Take Tylenol or ibuprofen as needed for pain or fever. Follow-up with primary care provider for urine recheck or see ER visit if condition worsens with high fever, nausea, vomiting, severe back pain Patient Language: Japanese Prescriptions: New cephalexin 500 mg capsule 500 mg PO BID 5 Days Qty: 10 0RF No Action fluoxetine 10 mg capsule 10 mg PO DAILY cephalexin 500 mg tablet 500 mg PO Q12H Qty: 20 0RF Follow-up/Referrals: Deondre Guy MD [Physician] - 3 Days Stand Alone Forms: Work/School Release IP Time of Disposition: 15:07
[2024-08-27 14:37] LABS: EDUAAPPEAR Cloudy; EDUABILI Negative (Negative); EDUABLOOD 1+ (Negative); EDUACOLOR1 Yellow; EDUAGLUCOSE Negative (Negative); EDUAKETONE Negative (Negative); EDUALEUKO 2+ (Negative); EDUANITRATE Positive (Negative); EDUAPH 5.5; EDUAPROTEIN 1+ (Negative); EDUAUROBILI 0.2
== END 2024-08-27 15:12 | disposition home or self-care (01) ==
PROVIDERS: Emergency Provider Nurse Practitioner Family
DX: N30.01 Acute cystitis with hematuria (principal)
CPT/HCPCS: 81003; 87077; 87086; 87186; 99213; G0463

== ENCOUNTER 2024-10-21 17:15 | Emergency (ER) | payer OTHER, SELFPAY ==
--- OUTSIDE RECORDS SUMMARY | 2024-10-21 17:19 | XMS_ITS | Data Portability ---
Author Organization [facility] Address [address] [facility] [place] [address] Care Team Providers Care Powerhouse Mechanic Name Role Phone LISA SLADE Primary Care Provider Assessment Encounter Date Assessment Date Assessment LastModified by Organization Details LastModified Time 03/29/2020 03/29/2020 patient states she will be getting flu shot at work. [email or web address] Not available 03/29/2020 14:11:11 06/23/2023 06/23/2023 patient needs cervical cancer screening on next visit [email or web address] Not available 06/23/2023 11:30:55 Plan of Treatment Reminders Order Date Submit Date Provider Last Modified By Organization Details Last Modified Time Details Appointments None recorded. Lab TSH, ultra-sens itive, serum 2022 023 [place] [facility], [address], [place], [address], 3 07:15:43 CBC w/ auto diff [address] [facility], [address], [place], [address], 3 06:19:32 vitamin D, 25-hydroxy , total, serum 2022 023 [facility], [address], [place], [address], 3 07:15:44 CMP, serum or plasma [address] [facility], [address], [place], [address], 3 06:19:31 lipid panel, serum 2022 023 [facility], [address], [place], [address], 3 06:19:31 HbA1c (hemoglobi n A1c), blood 2022 023 [facility], [address], [place], [address], 3 07:15:44 CMP, serum or plasma 2019 020 [facility], [address], [place], [address], 0 07:07:40 CBC w/ auto diff 2019 020 [facility], [address], [place], [address], 0 07:07:39 lipid panel, serum 2019 020 [facility], [address], [place], [address], 0 07:07:40 vitamin D, 25-hydroxy , total, serum 2019 020 [facility], [address], [place], [address], 0 07:07:41 TSH, ultra-sens itive, serum 2019 020 [facility], [address], [place], [address], 0 07:07:41 Referral dermatolog ist referral [address] Not available 1 05:01:14 Procedures None recorded. Surgeries None recorded. Imaging MAMMO, screening, bilateral 2019 020 [email or web address] [facility] (Mammography) , [address], [place], [address], 0 10:02:56 MAMMO, screening, bilateral 2019 020 [facility], [address], [place], [address], 0 15:30:48 Medication Orders fluoxetine 10 mg capsule 2022 023 [email or web address] [id number], [address] [place], [address], 3 11:21:33 fluoxetine 20 mg capsule 2019 020 [place] [id number], [address] [place], [address], 3 09:10:25 fluoxetine 20 mg capsule 2019 020 [place] [id number], [address] [place], [address], 3 09:10:25 Patient TargetsNo targets recorded. Patient Instructions Encounter Date Encounter Id Patient Instructions Last Modified By Organization Details Last Modified Time 08/04/2019 [id number] mammogram: about this test [email or web address] Not available 08/04/2019 14:56:40 04/29/2023 [id number] medical record request* [email or web address] Not available 05/13/2023 [...] management [email or web address] Not available 04/29/2023 10:02:02 06/23/2023 [id number] A healthy lifestyle: care instructions [email or web address] Not available 06/23/2023 11:30:56 Attending Physician Addendum I did not personally see or examine the patient with the resident. I was physically present to provide indirect supervision through entire encounter. I have reviewed the documentation and agree with the history, physical findings, work-up, and medical decision making as recorded. Laly Monreal MD [email or web address] Not available 06/23/2023 12:14:26 Reason for Referral Insurance Checker Referral for L esion of face Referring Physician: Lisa Slade, Family Medicine, Encounter Date: 03/29/2020 Results Created Date Observation Date Name Description Value Unit Range Abnormal Flag Note LastModifiedBy Organization Detail LastModifiedTime 08/21/1908/22/2019 CBC w/ auto diff WBC 7.5 x10e3 /uL 3.4-10 .8 Not Available [facility] ([facility]) [address] [place], [address], 08/23/2019 07:07:39 08/21/1908/22/2019 CBC w/ auto diff RBC 4.70 x10e6 /uL 3.77-5 .28 Not Available [facility] ([facility]) [address] [place], [address], 08/23/2019 07:07:39 08/21/1908/22/2019 CBC w/ auto diff hemoglobin 13.3 g/dL 11.1-1 5.9 Not Available [facility] ([facility]) [address] [place], [address], 08/23/2019 07:07:39 08/21/1908/22/2019 CBC w/ auto diff hematocrit 40.0 % 34.0-4 6.6 Not Available [facility] ([facility]) [address] [place], [address], 08/23/2019 07:07:39 08/21/19 20 08/22/2019 CBC w/ auto diff MCV 85 fL 79-97 Not Available [facility] ([facility]) [address] [facility], [place], [address], 08/23/2019 07:07:39 08/21/19 20 08/22/2019 CBC w/ auto diff MCH 28.3 pg 26.6-3 3.0 Not Available [facility] ([facility]) [address] [facility], [place], [address], 08/23/2019 07:07:39 08/21/19 20 08/22/2019 CBC w/ auto diff MCHC 33.3 g/dL 31.5-3 5.7 Not Available [facility] ([facility]) [address] [facility], [place], [address], 08/23/2019 07:07:39 08/21/19 20 08/22/2019 CBC w/ auto diff RDW 13.0 % 11.7-1 5.4 Not Available [facility] ([facility]) [address] [facility], [place], [address], 08/23/2019 07:07:39 08/21/19 20 08/22/2019 CBC w/ auto diff platelets 446 x10e3 /uL 150-45 0 Not Available [facility] ([facility]) [address] [facility], [place], [address], 08/23/2019 07:07:39 08/21/19 20 08/22/2019 CBC w/ auto diff neutrophils 60 % not estab. Not Available [facility] ([facility]) [address] [facility], [place], [address], 08/23/2019 07:07:39 08/21/19 20 08/22/2019 CBC w/ auto diff lymphs 30 % not estab. Not Available [facility] ([facility]) [address] [facility], [place], [address], 08/23/2019 07:07:39 08/21/19 20 08/22/2019 CBC w/ auto diff monocytes 8 % not estab. Not Available [facility] ([facility]) [address] [place], [address], 08/23/2019 07:07:39 08/21/19 20 08/22/2019 CBC w/ auto diff eos 1 % not estab. Not Available [facility] ([facility]) [address] [place], [address], 08/23/2019 07:07:39 08/21/19 20 08/22/2019 CBC w/ auto diff basos 1 % not estab. Not Available [facility] ([facility]) [address] [place], [address], 08/23/2019 07:07:39 08/21/19 20 08/22/2019 CBC w/ auto diff immature cells SECTION REPAIRER Not Available [facility]) [address] [place], [address], 08/23/2019 07:07:39 08/21/19 20 08/22/2019 CBC w/ auto diff neutrophils (absolute) 4.5 x10e3 /uL 1.4-7. 0 Not Available [facility] ([facility]) [address] [place], [address], 08/23/2019 07:07:39 08/21/19 20 08/22/2019 CBC w/ auto diff lymphs (absolute) 2.2 x10e3 /uL 0.7-3. 1 Not Available [facility] ([facility]) [address] [place], [address], 08/23/2019 07:07:39 08/21/19 20 08/22/2019 CBC w/ auto diff monocytes(ab solute) 0.6 x10e3 /uL 0.1-0. 9 Not Available [facility] ([facility]) [address] [place], [address], 08/23/2019 07:07:39 08/21/19 20 08/22/2019 CBC w/ auto diff eos (absolute) 0.1 x10e3 /uL 0.0-0. 4 Not Available [facility] ([facility]) [address] [facility], [place], [address], 08/23/2019 07:07:39 08/21/19 20 08/22/2019 CBC w/ auto diff baso (absolute) 0.1 x10e3 /uL 0.0-0. 2 Not Available [facility] ([facility]) [address] [facility], [place], [address], 08/23/2019 07:07:39 08/21/19 20 08/22/2019 CBC w/ auto diff immature granulocytes 0 % not estab. Not Available [facility] ([facility]) [address] [place], [address], 08/23/2019 07:07:39 08/21/19 20 08/22/2019 CBC w/ auto diff immature grans (abs) 0.0 x10e3 /uL 0.0-0. 1 Not Available [facility] ([facility]) [address] [place], [address], 08/23/2019 07:07:39 08/21/19 20 08/22/2019 CBC w/ auto diff NRBC SECTION REPAIRER Not Available [facility] ([facility]) [address] [place], [address], 08/23/2019 07:07:39 08/21/19 20 08/22/2019 CBC w/ auto diff hematology comments: SECTION REPAIRER Not Available [facility]) [address] [place], [address], 08/23/2019 07:07:39 08/21/19 20 08/22/2019 CMP, serum or plasm a glucose 87 mg/dL 65-99 Not Available [facility] ([facility]) [address] [place], [address], 08/23/2019 07:07:39 08/21/19 20 08/22/2019 CMP, serum or plasm a BUN 13 mg/dL 6-24 Not Available [facility] ([facility]) [address] [place], [address], 08/23/2019 07:07:39 08/21/19 20 08/22/2019 CMP, serum or plasm a creatinine 0.65 mg/dL 0.57-1 .00 Not Available [facility] ([facility]) [address] [place], [address], 08/23/2019 07:07:39 08/21/19 20 08/22/2019 CMP, serum or plasm a eGFR if nonafricn AM 111 mL/mi n/1.7 3 >59 Not Available [facility] ([facility]) [address] [place], [address], 08/23/2019 07:07:39 08/21/19 20 08/22/2019 CMP, serum or plasm a eGFR if africn AM 128 mL/mi n/1.7 3 >59 Not Available [facility] ([facility]) [address] [place], [address], 08/23/2019 07:07:39 08/21/19 20 08/22/2019 CMP, serum or plasm a BUN/creatini ne ratio 20 9-23 Not Available [facility] ([facility]) [address] [place], [address], 08/23/2019 07:07:39 08/21/19 20 08/22/2019 CMP, serum or plasm a sodium 140 mmol/ L 134-14 4 Not Available [facility] ([facility]) [address] [place], [address], 08/23/2019 07:07:39 08/21/19 20 08/22/2019 CMP, serum or plasm a potassium 5.0 mmol/ L 3.5-5. 2 Not Available [facility] ([facility]) [address] [facility] [place], [address], 08/23/2019 07:07:39 08/21/19 20 08/22/2019 CMP, serum or plasm a chloride 103 mmol/ L 96-106 Not Available [facility] ([facility]) [address] [facility] [place], [address], 08/23/2019 07:07:39 08/21/19 20 08/22/2019 CMP, serum or plasm a carbon dioxide, total 24 mmol/ L 20-29 Not Available [facility] ([facility]) [address] [facility] [place], [address], 08/23/2019 07:07:39 08/21/19 20 08/22/2019 CMP, serum or plasm a calcium 10.4 mg/dL 8.7-10 .2 above high normal Not Available [facility] ([facility]) [address] [facility] [place], [address], 08/23/2019 07:07:39 08/21/1908/22/2019 CMP, serum or plasm a protein, total 6.3 g/dL 6.0-8. 5 Not Available [facility] ([facility]) [address] [facility] [place], [address], 08/23/2019 07:07:39 08/21/1908/22/2019 CMP, serum or plasm a albumin 4.1 g/dL 3.8-4. 8 Ple ase note refer ence inter tito duenas e Not Available [facility] ([facility]) [address] [facility] [place], [address], 08/23/2019 07:07:39 08/21/19 20 08/22/2019 CMP, serum or plasm a globulin, total 2.2 g/dL 1.5-4. 5 Not Available [facility] ([facility]) [address] [facility] [place], [address], 08/23/2019 07:07:39 08/21/19 20 08/22/2019 CMP, serum or plasm a A/G ratio 1.9 1.2-2. 2 Not Available [facility] ([facility]) [address] [facility] [place], [address], 08/23/2019 07:07:39 08/21/19 20 08/22/2019 CMP, serum or plasm a bilirubin, total 0.4 mg/dL 0.0-1. 2 Not Available [facility] ([facility]) [address] [facility] [place], [address], 08/23/2019 07:07:39 08/21/19 20 08/22/2019 CMP, serum or plasm a alkaline phosphatase 81 IU/L 39-117 Not Available [facility] [address] [place], [address], 08/23/2019 07:07:39 08/21/19 20 08/22/2019 CMP, serum or plasm a AST (SGOT) 16 IU/L 0-40 Not Available [facility] ([facility]) [address] [place], [address], 08/23/2019 07:07:39 08/21/19 20 08/22/2019 CMP, serum or plasm a ALT (SGPT) 20 IU/L 0-32 Not Available [facility] ([facility]) [address] [place], [address], 08/23/2019 07:07:39 08/21/19 20 08/22/2019 lipid panel , serum cholesterol, total 171 mg/dL 100-19 9 Not Available [facility] ([facility]) [address] [place], [address], 08/23/2019 07:07:40 08/21/19 20 08/22/2019 lipid panel , serum triglyceride s 100 mg/dL 0-149 Not Available [facility]) [address] [facility] [place], [address], 08/23/2019 07:07:40 08/21/19 20 08/22/2019 lipid panel , serum HDL cholesterol 48 mg/dL >39 Not Available [facility] [address] [place], [address], 08/23/2019 07:07:40 08/21/19 20 08/22/2019 lipid panel , serum VLDL cholesterol junior 20 mg/dL 5-40 Not Available [facility]) [address], [place], [address], 08/23/2019 07:07:40 08/21/19 20 08/22/2019 lipid panel , serum LDL cholesterol calc 103 mg/dL 0-99 above high normal Not Available [facility] ([facility]) [address] [facility] [place], [address], 08/23/2019 07:07:40 08/21/19 20 08/22/2019 lipid panel , serum comment: SECTION REPAIRER Not Available [facility] ([facility]) [address] [facility], [place], [address], 08/23/2019 07:07:40 08/21/19 20 08/23/2019 vitam in [...] of Medic ine). 2010. Dieta ry refer ence nicole es for calci um and D. Abdulkadir artis [place]: The Natio nal [facility] Press . 2. Holic k MF, [place] [employer] [place], Jcarlos off-F errar i [place], et al. Evalu ation , treat ment, and preve ntion of vitam in D defic iency : an Endoc rine Socie ty clini junior pract ice guide line. JCEM. 2010; 96(7) :1911 -30. Not Available [facility] ([facility]) [address] [facility], [place], [address], 08/23/2019 07:07:41 08/21/19 20 08/22/2019 TSH, ultra -sens itive , serum TSH 1.700 uIU/m L 0.450- 4.500 Not Available [facility] ([facility]) [address] [facility], [place], [address], 08/23/2019 07:07:41 04/29/20 23 04/29/2023 LIPID PANEL cholesterol, total 167 mg/dL 100-19 9 Not Available [facility] [address] [place], [address], 04/30/2023 06:19:30 04/29/20 23 04/29/2023 LIPID PANEL triglyceride s 121 mg/dL 0-149 Not Available [facility] [address] [place], [address], 04/30/2023 06:19:30 04/29/20 23 04/29/2023 LIPID PANEL HDL cholesterol 45 mg/dL 40-[address] [facility] [address] [place], [address], 04/30/2023 06:19:30 04/29/20 23 04/29/2023 LIPID PANEL VLDL cholesterol junior 24 mg/dL 5-40 Not Available [facility] [address] [place], [address], 04/30/2023 06:19:30 04/29/20 23 04/29/2023 LIPID PANEL LDL chol calc ([facility]) 115 mg/dL 0-99 above high normal Not Available [facility] [address] [place], [address], 04/30/2023 06:19:30 04/29/2004/29/2023 COMP. METAB OLIC PANEL (14) glucose 87 mg/dL 70-99 Not Available [facility] [address] [place], [address], 04/30/2023 06:19:31 04/29/20 23 04/29/2023 COMP. METAB OLIC PANEL (14) BUN 10 mg/dL 6-24 Not Available [facility] [address] [place], [address], 04/30/2023 06:19:31 04/29/2004/29/2023 COMP. METAB OLIC PANEL (14) creatinine 0.58 mg/dL 0.76-1 .27 below low normal Not Available [facility] [address] [place] [address], [address], 04/30/2023 06:19:31 04/29/2004/29/2023 COMP. METAB OLIC PANEL (14) eGFR 114 >=60 Units for eGFR value s are mL/mi n/1.7 3 The eGFR Calcu latio n has not been valid ated for patie nts under the age of 18. If test resul ts are displ ayed for a patie nt under the age of 18, disre braxton that value . Not Available [facility] [address] [place], [address], 04/30/2023 06:19:31 04/29/2004/29/2023 COMP. METAB OLIC PANEL (14) BUN/creatini ne ratio 17 9- Not Available [facility] [address] [place], [address], 04/30/2023 06:19:31 04/29/20 23 04/29/2023 COMP. METAB OLIC PANEL (14) sodium 142 mmol/ L 134-14 4 Not Available [facility] [address] [place], [address], 04/30/2023 06:19:31 04/29/2004/29/2023 COMP. METAB OLIC PANEL (14) potassium 4.5 mmol/ L 3.5-5. 2 Not Available [facility] [address] [place], [address], 04/30/2023 06:19:31 04/29/2004/29/2023 COMP. METAB OLIC PANEL (14) chloride 105 mmol/ L 96-106 Not Available [facility] [address] [place], [address], 04/30/2023 06:19:31 04/29/2004/29/2023 COMP. METAB OLIC PANEL (14) carbon dioxide, total 26 mmol/ L 20-29 Not Available [facility] [address] [place], [address], 04/30/2023 06:19:31 04/29/2004/29/2023 COMP. METAB OLIC PANEL (14) calcium 10.2 mg/dL 8.7-10 .2 Not Available [facility] [address] [place], [address], 04/30/2023 06:19:31 04/29/2004/29/2023 COMP. METAB OLIC PANEL (14) protein, total 6.4 g/dL 6.0-8. 5 Not Available [facility] [address] [place], [address], 04/30/2023 06:19:31 04/29/20 23 04/29/2023 COMP. METAB OLIC PANEL (14) albumin 4.0 g/dL 3.9-4. 9 Not Available [facility] [address] [place], [address], 04/30/2023 06:19:31 04/29/20 23 04/29/2023 COMP. METAB OLIC PANEL (14) globulin, total 2.4 g/dL 1.5-4. 5 Not Available [facility] [address] [place], [address], 04/30/2023 06:19:31 04/29/20 23 04/29/2023 COMP. METAB OLIC PANEL (14) A/G ratio 2.0 1.2-2. 2 Not Available [facility] [address] [place], [address], 04/30/2023 06:19:31 04/29/20 23 04/29/2023 COMP. METAB OLIC PANEL (14) bilirubin, total 0.2 mg/dL 0.0-1. 2 Not Available [facility] [address] [place], [address], 04/30/2023 06:19:31 04/29/20 23 04/29/2023 COMP. METAB OLIC PANEL (14) alkaline phosphatase 95 IU/L 44-[address] [facility] [address] [place], [address], 04/30/2023 06:19:31 04/29/20 23 04/29/2023 COMP. METAB OLIC PANEL (14) AST (SGOT) 21 IU/L 0-40 Not Available [facility] [address] [place], [address], 04/30/2023 06:19:31 04/29/20 23 04/29/2023 COMP. METAB OLIC PANEL (14) ALT (SGPT) 22 IU/L 0-32 Not Available [facility] [address] [place], [address], 04/30/2023 06:19:31 04/29/20 23 04/29/2023 CBC WITH DIFFE RENTI AL/PL ATELE T WBC 7.7 x10e3 /uL 3.4-10 .8 Not Available [facility] [address] [place], [address], 04/30/2023 06:19:32 04/29/2004/29/2023 CBC WITH DIFFE RENTI AL/PL ATELE T RBC 4.73 x10e6 /uL 3.77-5 .28 Not Available [facility] [address] [place], [address], 04/30/2023 06:19:32 04/29/2004/29/2023 CBC WITH DIFFE RENTI AL/PL ATELE T hemoglobin 12.2 g/dL 11.1-1 5.9 Not Available [facility] [address] [place], [address], 04/30/2023 06:19:32 04/29/2004/29/2023 CBC WITH DIFFE RENTI AL/PL ATELE T hematocrit 39.4 % 34.0-4 6.6 Not Available [facility] [address] [place], [address], 04/30/2023 06:19:32 04/29/2004/29/2023 CBC WITH DIFFE RENTI AL/PL ATELE T MCV 83 fL 79-97 Not Available [facility] [address] [place], [address], 04/30/2023 06:19:32 04/29/2004/29/2023 CBC WITH DIFFE RENTI AL/PL ATELE T MCH 25.8 pg 26.6-3 3.0 below low normal Not Available [facility] [address] [place], [address], 04/30/2023 06:19:32 04/29/2004/29/2023 CBC WITH DIFFE RENTI AL/PL ATELE T MCHC 31.0 g/dL 31.5-3 5.7 below low normal Not Available [facility] [address] [place], [address], 04/30/2023 06:19:32 04/29/2004/29/2023 CBC WITH DIFFE RENTI AL/PL ATELE T RDW 14.1 % 11.5-1 4.5 Not Available [facility] [address] [place], [address], 04/30/2023 06:19:32 04/29/2004/29/2023 CBC WITH DIFFE RENTI AL/PL ATELE T platelets 382 x10e3 /uL 150-45 0 Not Available [facility] [address] [place], [address], 04/30/2023 06:19:32 04/29/2004/29/2023 CBC WITH DIFFE RENTI AL/PL ATELE T neutrophils 65 % notest b. Not Available [facility] [address] [place], [address], 04/30/2023 06:19:32 04/29/20 23 04/29/2023 CBC WITH DIFFE RENTI AL/PL ATELE T lymphs 26 % notest b. Not Available [facility] [address] [place], [address], 04/30/2023 06:19:32 04/29/2004/29/2023 CBC WITH DIFFE RENTI AL/PL ATELE T monocytes 7 % notest b. Not Available [facility] [address] [place], [address], 04/30/2023 06:19:32 04/29/2004/29/2023 CBC WITH DIFFE RENTI AL/PL ATELE T eos 1 % notest b. Not Available [facility] [address] [place], [address], 04/30/2023 06:19:32 04/29/20 23 04/29/2023 CBC WITH DIFFE RENTI AL/PL ATELE T basos 1 % notest b. Not Available [facility] [address] [place], [address], 04/30/2023 06:19:32 04/29/2004/29/2023 CBC WITH DIFFE RENTI AL/PL ATELE T neutrophils (absolute) 5.0 x10e3 /uL 1.4-7. 0 Not Available [facility] [address] [place], [address], 04/30/2023 06:19:32 04/29/20 23 04/29/2023 CBC WITH DIFFE RENTI AL/PL ATELE T lymphs (absolute) 2.0 x10e3 /uL 0.7-3. 1 Not Available [facility] [address] [place], [address], 04/30/2023 06:19:32 04/29/2004/29/2023 CBC WITH DIFFE RENTI AL/PL ATELE T monocytes(ab solute) 0.5 x10e3 /uL 0.1-0. 9 Not Available [facility] [address] [place], [address], 04/30/2023 06:19:32 04/29/2004/29/2023 CBC WITH DIFFE RENTI AL/PL ATELE T eos (absolute) 0.1 x10e3 /uL 0.0-0. 4 Not Available [facility] [address] [place], [address], 04/30/2023 06:19:32 04/29/2004/29/2023 CBC WITH DIFFE RENTI AL/PL ATELE T baso (absolute) 0.1 x10e3 /uL 0.0-0. 2 Not Available [facility] [address] [place], [address], 04/30/2023 06:19:32 04/29/20 23 04/29/2023 CBC WITH DIFFE RENTI AL/PL ATELE T immature granulocytes 0.3 % notest b. Not Available [facility] [address] [place], [address], 04/30/2023 06:19:32 04/29/2004/29/2023 CBC WITH DIFFE RENTI AL/PL ATELE T immature grans (abs) 0.0 x10e3 /uL 0.0-0. 1 Not Available [facility] [address] [place], [address], 04/30/2023 06:19:32 04/29/20 23 04/29/2023 CBC WITH DIFFE RENTI AL/PL ATELE T NRBC 0 % 0-0 Not Available [facility] [address] [place], [address], 04/30/2023 06:19:32 04/29/2004/30/2023 TSH RFX ON ABNOR MAL TO FREE T4 TSH 2.570 uIU/m L 0.450- 4.500 Not Available [facility] ([facility]) [address] [facility], [place], [address], 04/30/2023 07:15:43 04/29/2004/30/2023 HEMOG LOBIN A1C hemoglobin A1C 5.6 % 4.8-5. 6 Predi abete s: 5.7 - 6.4 Diabe belem: >6.4 Glyce chester contr ol for adult s with diabe belem: <7.0 Not Available [facility] ([facility]) [address] [facility], [place], [address], 04/30/2023 07:15:44 04/29/2004/30/2023 VITAM IN D, 25-HY DROXY vitamin D, [...] of Medic ine). 2010. Dieta ry refer ence intak es for calci um and D. Abdulkadir artis DC: [facility] Press . 2. Shweta bennett MF, [place] [employer] [place], Jcarlos off-F errar i [place], et al. Evalu ation , treat ment, and preve ntion of vitam in D defic iency : an Endoc rine Socie ty clini junior pract ice guide line. JCEM. 2010; 96(7) :1911 -30. Not Available [facility] ([facility]) [address] [facility], [place], [address], 04/30/2023 07:15:44 11/14/19 19 11/13/2018 [place], [facility] ardio gram, trans thora cic, compl ete, w/ color flow No observ ation record ed. [facility] (Im[facility]) [address] [place] [address], [phone], 12/01/2018 12:57:44 11/18/19 19 11/13/2018 thaddeus r monit or No observ ation record ed. [facility] ([facility]) [address] [place] [address], [phone], 12/01/2018 12:57:44 Result Notes None recorded. Problems Name Problem SNOMED Code Status Onset Date Resolution Date Notes Provider Name and Address Organization Details Recorded Time Generalized anxiety disorder 23165852 Active 2022 MARCO ALCAZAR MD Attn: Bala mir,[address], [place], [address], [place] [facility] 3 17:18:23 Morbid obesity 791419965 Active 2022 MARCO ALCAZAR MD Attn: Bala imr,[address], [place], [address], [place] [facility] 3 17:18:26 Vitamin D deficiency 98330712 Active 2022 MARCO ALCAZAR MD Attn: Bala mir,[address], [place], [address], [place] [facility] 3 15:31:10 Hyperlipidemia 54009259 Active 2022 MARCO ALCAZAR MD Attn: Bala mir,[address] [address], [place], [address], [place] [facility] 3 15:33:03 Problem Notes None recorded. Procedures Surgical History None recorded. Imaging Results Imaging Date Name Status LastModified by Organiz ation Details LastModified Time 11/13/2018 US, echocardiogr am, transthoraci c, complete, w/ color flow completed [facility] (Imaging) [address] [place] [address] [place] [address], [id number], 12/01/2018 12:57:44 11/13/2018 holter monitor completed [facility] (Imaging) [address] [place] [address], [id number], 12/01/2018 12:57:44 Procedure Notes None recorded. Medical [...] Updated DateTime 9 167.64 cm 37.1 kg/m2 147846. 81 g 72 /min 72 /min 18 /min 97 % 97 % 98.9 [degF] 139 mm[Hg] 88 mm[Hg] Nirali Alva [facility] 9 11:13:49 Date Recorded Body height Body mass index (BMI) Body weight Oxygen saturation Oxygen saturation in Arterial blood by Pulse oximetry Heart rate Systolic blood pressure Diastolic blood pressure Provider Name and Address Organization Details Last Updated DateTime 0 167.64 cm 36.2 kg/m2 416651. 79 g 98 % 98 % 78 /min 108 mm[Hg] 88 mm[Hg] Simran Lloyd [facility] 0 14:16:21 Date Recorded Body height Body mass index (BMI) Body weight Body temperature Respiratory rate Oxygen saturation Oxygen saturation in Arterial blood by Pulse oximetry Heart rate Systolic blood pressure Diastolic blood pressure Provider Name and Address Organization Details Last Updated DateTime 3 167.64 cm 42 kg/m2 217505. 77 g 98.5 [degF] 12 /min 99 % 99 % 79 /min 130 mm[Hg] 84 mm[Hg] Irasema Gabriel MA [place] - [facility] 3 09:15:09 Date Recorded Body height Body mass index (BMI) Body weight Body temperature Heart rate Respiratory rate Systolic blood pressure Diastolic blood pressure Provider Name and Address Organization Details Last Updated DateTime 3 167.64 cm 40.9 kg/m2 899626. 97 g 97 [degF] 65 /min 14 /min 135 mm[Hg] 77 mm[Hg] Moraima Garcia [place] - [facility] 3 09:58:37 Social History Question Answer Notes LastModified by Organizat ion Details LastModified Time Tobacco Smoking Status Never Smoker Valorie Stephenson SUKUMAR null, [place] - [facility] 10/26/2018 14:43:07 What Is Your [...] Response Coronary Artery Disease N Other N Atrial Fibrillation N High Blood Pressure N Thyroid Problems N Kidney or Bladder Problems N GI Problems N Depression N COPD N Blood Clots N Eating Disorder N Skin Problems N Anemia N Heart Attack (CT) N Anxiety Disorder Y Diabetes N Muscle, [...] SNOMED-CT Code Diagnosis ICD10 Code Diagnosis Note [id number] Lisa Slade MD [facility] [address] [place] [address] 10/26/2018 14:19:43 10/26/2018 16:33:14 Intermittent palpitations 917305493 R00.2 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 Adult [facility] th examination 113867371 Z00.00 [id number] Lisa Slade MD [facility] [address] [place] [address] 03/29/2020 13:59:37 03/30/2020 10:02:56 Screening mammography 13712756 Z12.31 both grand mothers and one aunt with breast cancer. Moderate r ecurrent major depression 55540503 F33.1 Lesion of face 657593959 L98.9 [id number] Rosy Cannon MD [place] [address] [facility] [address] [place] [address] [place] [address] 04/29/2023 08:43:45 05/08/2023 12:01:36 Morbid obesity 810474912 E66.01 Patient educated on healthy eating habits and exercise at least 30 mins per day. A diet comprised of four to five servings of fruit, four to five servings of vegetables , and two to three servings of low-fat dairy per day, with <25 percent of daily caloric intake from fat. Generalize d anxiety disorder 16448077 F41.1 - Previously managed on fluoxetine and did well on the medication .- start fluoxetine 10 mg daily- follow-up in 2 months Screening for malignant neoplasm of breast 689122224 Z12.39 Kandy Model for Breast cancer risk model puts patient at 0.9% risk of breast cancer in the next 5 years. This informatio n was discussed with patient who agreed to wait until next year to repeat mammogram. [id number] MD Shekhar Mcgovern [address] IM [address] [facility] [place] [address] 06/23/2023 09:45:41 06/25/2023 15:21:47 Generalized anxiety disorder 31878452 F41.1 - Doing well with medication and would like to maintain current dosage.- plan to continue fluoxetine 10 mg daily.- she is aware that she can reach out, if current dose is no longer effective- follow-up in 6 months Obesity 224952720 E66.9 Patient educated on healthy eating habits [...] Policy Number Policy Dhaliwal Covered Member ID Dhaliwal Member ID Guarantor Name 12/02/2018 1 [employer] - CHOICE (POS II) [id number] Katelynn Roland Ulices [id number] Katelynn Andersen Anish 08/04/2019 1 [employer] - CHOICE (POS II) [id number] Katelynn Roland Anish [id number] Katelynn Suazon 03/29/2020 1 [employer] - CHOICE (POS II) [id number] Katelynn Watkins Anish [id number] Katelynn Suazon 04/29/2023 1 [employer] - CHOICE (POS II) [id number] Katelynn Roland Anish [id number] Katelynn Suazon 06/23/2023 1 [employer] - CHOICE (POS II) [id number] Katelynn Suazon [id number] Katelynn Andersen Anish Notes Date Note Type Note Provider Name and Address Organization Details Recorded Time 12/02/2018 text/html palpitations off and on, somewhat better with fluoxitine holter shows no correlation between symptoms and arrhythmias noted Lupillo Lai MD [address] [place], [address], [facility] 12/02/2018 11:29:15 08/04/2019 text/html Anxiety/Depressi onRe ported bypatient.Quality:sy mptoms improved Severity:denies suicidal ideations; does not interfere with activities of daily living Duration:stablizing Onset/Timing:gradual Context:family problems;trouble at work Modifying Factors:counselling; medications as directed Associated Symptoms:denies homicidal ideations; mood good; no crying spells; sleeping wellNotes:doing well on current dose of fluoxetine. Needs to discuss about possible renewal of fluoxetine. Lisa Slade MD Attn: Accounting,[address] [place], [address], [facility] 08/07/2019 17:53:29 03/29/2020 text/html Anxiety/Depressi onRe ported bypatient.Quality:sy mptoms improved Severity:denies suicidal ideations; does not interfere with activities of daily living Duration:stablizing Onset/Timing:gradual Context:family problems;trouble at work Modifying Factors:counselling; medications as directed Associated Symptoms:denies homicidal ideations; mood good; no crying spells; sleeping wellNotes:better with fluoxetine. Lisa Slade MD Attn: [facility],[address] [place], [address], [facility] 04/02/2020 21:50:53 04/29/2023 text/html Katelynn is a [...] leg swelling. Rosy Cannon MD Attn: Accounting,[address] [place], [address], [facility] 05/05/2023 11:21:51 06/23/2023 text/html Katelynn is a [...] leg swelling. Laly Monreal MD Attn: Accounting,[address] [facility], [place], [address], [facility] 06/23/2023 12:14:49 OBGyn Episode No OBEpisode recorded.
[2024-10-21 17:24] VITALS: BP 155/97; PULSE 107; RESP 16; TEMP 36.7; O2SAT 100
--- NOTE | 2024-10-21 17:34 | ED.FEMALEGU ---
HPI - Female Genitourinary General Chief complaint: Urogenital-Female Stated complaint: UTI Time Seen by Provider: 10/21/24 17:34 Source: patient and RN notes reviewed Mode of arrival: ambulatory Limitations: no limitations History of Present Illness HPI Narrative: 43-year-old female presented for complaint of cloudy urine and an episode of burning with urination this morning. Also felt she did not empty her bladder after one episode of urination. She took U[place] and increased water intake. Took a home UA test, and said it was positive for UTI. Denies frequency, hematuria, nausea, vomiting, abdominal pain, flank pain, constipation, diarrhea, fevers or chills. Last uti 08/2024 per pt. Related Data Home Medications ?Medication ?Instructions ?Recorded ?Confirmed ?Last Taken ?Type uquora 10/21/24 Unknown History Allergies Allergy/AdvReac Type Severity Reaction Status Date / Time No Known Allergies Allergy Verified 10/21/24 17:26 Review of Systems Review of Systems: [facility] Past Medical History Medical History UTI (urinary tract infection) Family History Family History Grandparent Family history of malignant neoplasm of breast Family history of colonic diverticulitis Family history of heart disease in male family member before age 55 Diabetes mellitus Social History Social History Smoking status: Never smoker Second hand tobacco smoke exposure: No Alcohol intake: current Comments At time of signature, I have reviewed and agree with nursing past medical, surgical, social and family history unless otherwise noted. Please see nursing chart for further information. There is no relevant family history pertinent to the presenting complaint Exam Narrative: GENERAL: Well-appearing and in no acute distress. ENT: Mucous membranes pink and moist. NECK: Normal AROM. Supple. CHEST: No respiratory distress. Clear to auscultation. HEART: Regular rate and rhythm. ABDOMEN: Soft, nontender, nondistended, normal active bowel sounds. No CVA tenderness SKIN: Warm, dry, no rash. NEURO: No focal deficits. Alert and oriented x3. Gait steady. PSYCH: Normal affect. Course Course Emergency Course: Patient is aware of diagnosis, understands and agrees to treatment plan. Anticipatory guidance given. Patient agrees to follow-up as directed and is aware of reasons to seek care at the emergency department. Portions of this record may have been created with voice recognition software Level of Care: Express Care Visit Vital Signs Vital signs: Vital Signs Temperature 98.1 F 10/21/24 17:24 Pulse Rate 107 H 10/21/24 17:24 Respiratory Rate 16 10/21/24 17:24 Blood Pressure 155/97 H 10/21/24 17:24 Pulse Oximetry 100 10/21/24 17:24 Oxygen Delivery Room Air 10/21/24 17:24 Temperature 98.1 F 10/21/24 17:24 Pulse Rate 107 H 10/21/24 17:24 Respiratory Rate 16 10/21/24 17:24 Blood Pressure 155/97 H 10/21/24 17:24 Pulse Oximetry 100 10/21/24 17:24 Oxygen Delivery Room Air 10/21/24 17:24 Reviewed MDM - Female Genitourinary MDM Narrative Medical decision making narrative: Discussed physical exam findings and urine dip, will culture and treat accordingly per shared decision making. Advised supportive measures and signs/symptoms to go to the ER. Pt is appropriate for outpt treatment and f/u. Differential Diagnosis Differential diagnosis: Likely urinary tract infection, vaginitis, cystitis and other Lab Data Labs: Lab Results 10/21/24 Range/Units 17:36 POC Urine Color Yellow POC Urine Clarity Clear POC Urine pH 6.5 POC Ur Specif [place] 1.010 POC Urine Protein Negative (Negative) POC Ur Glucose (UA) Negative (Negative) POC Urine Ketones Negative (Negative) POC Urine Blood 1+ (Negative) POC Urine Nitrite Negative (Negative) POC Urine Bilirubin Negative (Negative) POC Urine Urobilinogen 0.2 POC U Leukocyte Esteras 1+ (Negative) Discharge Plan Discharge Clinical Impression: Dysuria Patient Disposition: Home Condition: Stable Instructions: Antibiotic Form, Urinary Tract Infection in Women (ED) Additional Instructions: Your urine will be sent of for a culture to determine if bacteria is causing your symptoms. If the culture shows a UTI, you will be notified and an antibiotic will be called in for you. you will need to follow up with your PCP for further evaluation and treatment if symptoms persist, call today to schedule follow-up appointment. Go to the ER for any worsening symptoms or concerns. Patient Language: Amharic Prescriptions: No Action uquora Follow-up/Referrals: PHYSICIAN,SLOPE HOIST OPERATOR [Primary Care Provider] - Time of Disposition: 17:52
[2024-10-21 17:42] LABS: EDUAAPPEAR Clear; EDUABILI Negative (Negative); EDUABLOOD 1+ (Negative); EDUACOLOR1 Yellow; EDUAGLUCOSE Negative (Negative); EDUAKETONE Negative (Negative); EDUALEUKO 1+ (Negative); EDUANITRATE Negative (Negative); EDUAPH 6.5; EDUAPROTEIN Negative (Negative); EDUAUROBILI 0.2
== END 2024-10-21 17:59 | disposition home or self-care (01) ==
PROVIDERS: Emergency Provider Nurse Practitioner Family
DX: R30.0 Dysuria (principal)
CPT/HCPCS: 81003; 87086; 99213; G0463

== ENCOUNTER 2024-12-23 12:02 | Outpatient (CLI) | payer OTHER, SELFPAY ==
--- NOTE | ~2024-12-23 | MM_ITS ---
EXAMINATION: MM screening kiana BI w dorie HISTORY: Screening TECHNIQUE: Craniocaudal and mediolateral oblique 3-D tomosynthesis images were obtained and synthetic 2-D images were generated. CAD analysis was submitted and interpreted. COMPARISON: 04/16/2023 BREAST PARENCHYMAL COMPOSITION: Not dense: There are scattered areas of fibroglandular density. FINDINGS: There is no evidence of suspicious mass, calcification, or architectural distortion to sugg est malignancy in either breast. There has been no suspicious interval change. IMPRESSION: 1. No mammographic evidence of malignancy. 2. Recommend routine screening mammography in one year. BI-RADS Category 1: Negative Reviewed, dictated and finalized at location A.
== END 2024-12-23 12:03 | disposition home or self-care (01) ==
LOC: CHSIMG 12:05
DX: Z12.31 Encounter for screening mammogram for malignant neoplasm of breast (principal)
CPT/HCPCS: 77063; 77067